=== PATIENT | male | born 1970 ===

== ENCOUNTER 2018-08-14 13:21 | Inpatient (IN) | payer MEDICAID, OTHER ==
--- NOTE | 2018-08-14 13:35 | C.PDOC ---
History Of Present Illness 48 year old male presents to the ER for an evaluation of left facial droop and recent falls. Patient reports he fell down at 1700 yesterday and since then he has had left sided facial droop and also fell one more time. He denies any pain , blurry vision, headache, head trauma, weakness or numbness in extremities. As per , patient has a lot of stress at work. PMD: Dr. Mjeia Time Seen by Provider: 08/14/18 13:31 Chief Complaint (Nursing): Weakness/Neurological Deficit History Per: Patient History/Exam Limitations: no limitations Onset/Duration Of Symptoms: Hrs Current Symptoms Are (Timing): Still Present Fall Associated With With Symptoms: Yes, No Injury As Result Of Fall Past Medical History Reviewed: Historical Data, Nursing Documentation, Vital Signs Vital Signs: Last Vital Signs Temp 97.9 F 08/18/18 08:29 Pulse 66 08/18/18 08:29 Resp 20 08/18/18 08:29 BP 120/80 08/18/18 08:29 Pulse Ox 99 08/18/18 08:29 - Medical History PMH: No Chronic Diseases Surgical History: No Surg Hx - [facility] Procedures CLOSURE SKIN & SUBCUTANEOUS NEC (04/30/15) Family History: States: Stroke (Father) - Social History Hx Tobacco Use: No Hx Alcohol Use: Yes Hx Substance Use: No - Immunization History Hx Tetanus Toxoid Vaccination: Yes Hx Influenza Vaccination: Yes Hx Pneumococcal Vaccination: No Review Of Systems Except As Marked, All Systems Reviewed And Found Negative. Eyes: Negative for: Vision Change Neurological: Negative for: Weakness, Numbness, Headache Physical Exam - Physical Exam Appears: Non-toxic, Other (Low acute distress ) Head: Other (Left facial droop that does not involve brow ) Eye(s): bilateral: PERRL, EOMI Nose: No Flaring Oral Mucosa: Moist Tongue: No Other (tongue deviation ) Lips: Normal Appearing Throat: No Erythema, No Exudate Neck: Normal ROM, Trachea Midline Lymphatic: No Adenopathy Chest: Symmetrical, No Tenderness Cardiovascular: Rhythm Regular, No Murmur Respiratory: Normal Breath Sounds, No Wheezing Gastrointestinal/Abdominal: Soft, No Tenderness Back: Normal Inspection, No Vertebral Tenderness Extremity: No Pedal Edema, No Deformity Neurological/Psych: Oriented x3, No Normal Speech (Slurred speech ), Normal Motor (strength 4/4 ), Other Other Neurological Findings: Facial Palsy, Forehead Sparing ED Course And Treatment - Laboratory Results Result Diagrams: 08/18/18 07:47 08/18/18 07:20 ECG: Interpreted By Me ECG Rhythm: Sinus Rhythm (normal qrs, normal st segments) O2 Sat by Pulse Oximetry: 98 (RA) Pulse Ox Interpretation: Normal - Other Rad CXR X-Ray: Viewed By Me, Read By Radiologist Interpretation: Accession No. : [id number]. Patient Name / ID : LAUREN CALDERÓN / [id number]. Exam Date : 08/14/2018 14:03:59 ( Approved ). Study Comment : Sex / Age : M / 48Y. Creator : Dionna Monahan MD. Dictator : Dionna Monahan MD. Mold Breaker : Manager Of Compliance : Dionna Monahan MD. Approver2 : Report Date : 08/14/2018 14:11:45. My Comment : . HISTORY: Code Stroke. COMPARISON: None available. TECHNIQUE: Chest, one view. FINDINGS: Examination limited by habitus. LUNGS: No focal consolidation. Probable 4 mm left mid lung zone calcified granuloma. Please note that chest x- ray has limited sensitivity for the detection of pulmonary masses. PLEURA: No significant pleural effusion identified. No definite pneumothorax . CARDIOVASCULAR: Heart size appears within normal limits. OSSEOUS STRUCTURES: Degenerative changes. VISUALIZED UPPER ABDOMEN: Unremarkable. OTHER FINDINGS : None. IMPRESSION: No focal consolidation, significant pleural effusion, or definite pneumothorax identified. - CT Scan/US CT Head Other Rad Studies (CT/US): Read By Radiologist, Radiology Report Reviewed CT/US Interpretation: Accession No. : [id number]. Patient Name / ID : LAUREN CALDERÓN / [id number]. Exam Date : 08/14/2018 13:42:58 ( Approved ). Study Comment : Sex / Age : M / 48Y. Creator : Nydia Winkler. Dictator : Loc Farfan MD. Mold Breaker : Manager Of Compliance : Loc Farfan MD. Approver2 : Report Date : 08/14/2018 13:47:50. My Comment : . Date of service: 08/14/2018. PROCEDURE: CT HEAD WITHOUT CONTRAST. HISTORY: Code Stroke. COMPARISON: None available. TECHNIQUE: Axial computed tomography images were obtained through the head/brain without intravenous contrast. Radiation dose: Total exam DLP = 1098 mGy-cm. This CT exam was performed using one or more of the following dose reduction techniques: Automated exposure control, adjustment of the mA and/or kV according to patient size, and/ or use of iterative reconstruction technique. FINDINGS: HEMORRHAGE: No intracranial hemorrhage. BRAIN: 3.5 x 3.2 cm vague hypodense region in the right frontal lobe involving the de [place] matter and white matter probably representing an evolving acute infarct of the right middle cerebral artery distribution. No atrophy or chronic microvascular ischemic changes. VENTRICLES : Unremarkable. No hydrocephalus. CALVARIUM: Unremarkable. PARANASAL SINUSES : Unremarkable as visualized. No significant inflammatory changes. MASTOID AIR CELLS: Unremarkable as visualized. No inflammatory changes. OTHER FINDINGS : None. IMPRESSION: 3.5 x 3.2 cm vague hypodense region in the right frontal lobe involving the [place] matter and white matter probably representing an evolving acute infarct of the right middle cerebral artery distribution. No acute hemorrhage. Recommend follow-up. CTA Neck Other Rad Studies (CT/US): Read By Radiologist, Radiology Report Reviewed CT/US Interpretation: Accession No. : [id number]. Patient Name / ID : LAUREN CALDERÓN / [id number]. Exam Date : 08/14/2018 13:46:27 ( Approved ). Study Comment : Sex / Age : M / 48Y. Creator : Nydia Winkler. Dictator : Radha Connors MD. Mold Breaker : Manager Of Compliance : Radha Connors MD. Approver2 : Report Date : 08/14/2018 13:51:49. My Comment : . PROCEDURE: CTA HEAD AND NECK WITH CONTRAST. HISTORY: code stroke. COMPARISON: None available. TECHNIQUE: Initial noncontrast head CT was performed. Subsequently , CT angiogram of the head and neck were performed after the intravenous administration of 80 mL of Omnipaque 350. Contiguous 1.5mm thick images were obtained in the axial plane of the neck. 2-D coronal and sagittal MPR images were obtained. Imaging postprocessing was performed with 3-D images also obtained. A delayed contrast head CT was also obtained. This CT exam was performed using one or more of the following dose reduction techniques: Automated exposure control, adjustment of the mA and/or kV according to patient size, and/or use of iterative reconstruction technique. Contrast dose: 100 mL Visipaque 320. Radiation dose: Total exam DLP = 671.05 mGy-cm. FINDINGS: HEAD: Right: The intracranial internal carotid artery, and anterior and middle cerebral arteries are widely patent. The right A1 segment is hypoplastic , an anatomic variant. Left: The intracranial internal carotid artery, and anterior and middle cerebral arteries are widely patent. Posterior circulation : The visualized intracranial vertebral arteries, basilar artery and posterior cerebral arteries are widely patent. There is origin of the right posterior cerebral artery, an anatomic variant. There is no endoluminal filling defect to suggest thrombus. There is no intracranial saccular aneurysm. There is no abnormal enhancement on the postcontrast CT. NECK: There is a two vessel aortic arch with common origin of the innominate and left common carotid artery is. There is no stenosis at the origins of the great vessels at the level of the aortic arch. Right Carotid: On the right, the common carotid , internal carotid and external carotid arteries are widely patent. There is an eccentric soft plaque in the proximal internal carotid artery. There is no hemodynamically significant stenosis in the internal carotid artery by NASCET criteria. Left Carotid: On the left, the common carotid, internal carotid and external carotid arteries are widely patent. There is no hemodynamically significant stenosis in the internal carotid artery by NASCET criteria. The vertebral arteries are widely patent. The right vertebral artery is hypoplastic , an anatomic variant. The visualized soft tissues of the neck are normal. The visualized brain and cervical spine are within normal limits. There is patchy ground-glass attenuation in the right posterior segment of the upper lobe. The visualized left lung is clear. IMPRESSION: 1. No evidence of endoluminal thrombus,occlusion or definite significant stenosis in the intracranial arteries. 2. No evidence of hemodynamically significant stenosis in the internal carotid arteries. 3. Patent bilateral vertebral arteries. Right vertebral artery is hypoplastic, an anatomic variant. 4. Patchy airspace disease in the posterior segment of the right upper lobe may represent nonspecific infection/inflammation. Critical Care Time - Critical Care Note Total Time (in mins): 30 Documented critical care: time excludes all time spent performing seperately billable procedures. NIHSS Stroke Scale 2 - Date/Time Evaluation Performed Date Performed: 08/14/18 When Was NIHSS Performed: Code Stroke - How Severe is the Stroke Level of Consciousness: 0=Alert LOC to Questions: 0=Both comments correct LOC to commands: 0=Obeys both correctly Best Gaze: 0=Normal Visual: 0=No visual loss Facial: 2=Partial (lower face paralysis) Motor Arm - Left: 0=No drift Motor Arm - Right: 0=No drift Motor Leg - Left: 0=No drift Motor Leg - Right: 0=No drift Limb Ataxia: 0=Absent Sensory: 0=Normal Best Language: 0=No aphasia Dysarthia: 1=Mild to moderate slurring Extinction & Inattention (Neglect): 0=Normal, no object Score: 3 Medical Decision Making Medical Decision Making: Impression: Left facial droop, Fall Differential but not limited to: CVA, Cerebellum mass, Stroke, Frederick's palsy 1350 Dr. Alvarez, Neurology, assessed patient for possible stroke. Dr. Alvarez agrees with plan of care. Patient is not a candidate for TPA due to timing of symptoms and severity. 1406 Dr. Alvarez suggests MRI scan. DW pt findings and plan of care. [address] Sevilla, Hospitalist. Patient will be admitted. Disposition Counseled Patient/Family Regarding: Studies Performed, Diagnosis - Disposition Disposition: HOME/ ROUTINE Disposition Time: 14:00 Condition: GUARDED - POA Present On Arrival: Falls Or Trauma - Clinical Impression Clinical Impression: CVA (cerebral vascular accident) - Scribe Statement The provider has reviewed the documentation as recorded by the Scribe Nava Geronimo All medical record entries made by the Scribe were at my direction and personally dictated by me. I have reviewed the chart and agree that the record accurately reflects my personal performance of the history, physical exam, medical decision making, and the department course for this patient. I have also personally directed, reviewed, and agree with the discharge instructions and disposition.
[2018-08-14] MEDS ORDERED: Iodixanol 320 MG/ML 100 ML BOTTLE IV ONE (13:41)
[2018-08-14 13:47] LABS: BASO # 0.1 K/uL (0.0-0.2); BASO % 1.3 % (0.0-2.0); EOS # 0.1 K/uL (0.0-0.7); EOS % 1.3 % (0.0-4.0); HEMOGLOBIN 14.2 g/dL (12.0-18.0); LYMPH # 1.9 K/uL (1.0-4.3); LYMPH % 32.3 % (20.0-40.0); MEAN CELL VOLUME 78.5 fL (80.0-94.0); MEAN CORPUSCULAR HEMOGLOBIN 26.2 pg (27.0-31.0); MEAN CORPUSCULAR HGB CONC 33.3 g/dL (33.0-37.0); MEAN PLATELET VOLUME 7.8 fL (7.2-11.7); MONO # 0.5 K/uL (0.0-0.8); NEUT # 3.4 K/uL (1.8-7.0); NEUT % 57.1 % (50.0-75.0); RBC 5.42 Mil/uL (4.40-5.90); RED CELL DISTRIBUTION WIDTH 16.2 % (11.5-14.5); WHITE BLOOD COUNT 5.9 K/uL (4.8-10.8)
[2018-08-14 13:54] LABS: INR 1.2; PROTHROMBIN TIME 12.8 SECONDS (9.7-12.2)
[2018-08-14 13:58] LABS: ALB/GLOB RATIO 1.2 (1.0-2.1); ALBUMIN 4.3 g/dL (3.5-5.0); ALT/SGPT 35 U/L (21-72); AST/SGOT 31 U/L (17-59); BLOOD UREA NITROGEN 10 mg/dL (9-20); GFR NON-AFRICAN AMERICAN > 60; HDL CHOLESTEROL 48 mg/dL (30-70)
--- NOTE | 2018-08-14 13:58 | CT ---
Date of service: 08/14/2018 PROCEDURE: CT HEAD WITHOUT CONTRAST. HISTORY: Code Stroke COMPARISON: None available. TECHNIQUE: Axial computed tomography images were obtained through the head/brain without intravenous contrast. Radiation dose: Total exam DLP = 1098 mGy-cm. This CT exam was performed using one or more of the following dose reduction techniques: Automated exposure control, adjustment of the mA and/or kV according to patient size, and/or use of iterative reconstruction technique. FINDINGS: HEMORRHAGE: No intracranial hemorrhage. BRAIN: 3.5 x 3.2 cm vague hypodense region in the right frontal lobe involving the [place] matter and white matter probably representing an evolving acute infarct of the right middle cerebral artery distribution. No atrophy or chronic microvascular ischemic changes. VENTRICLES: Unremarkable. No hydrocephalus. CALVARIUM: Unremarkable. PARANASAL SINUSES: Unremarkable as visualized. No significant inflammatory changes. MASTOID AIR CELLS: Unremarkable as visualized. No inflammatory changes. OTHER FINDINGS: None. IMPRESSION: 3.5 x 3.2 cm vague hypodense region in the right frontal lobe involving the de [place] matter and white matter probably representing an evolving acute infarct of the right middle cerebral artery distribution. No acute hemorrhage. Recommend follow-up.
[2018-08-14 14:03] VITALS: BMI 31.4
[2018-08-14 14:09] LABS: LDL CHOLESTEROL 103 mg/dL (0-129)
--- NOTE | 2018-08-14 14:13 | RAD ---
HISTORY: Code Stroke COMPARISON: None available. TECHNIQUE: Chest, one view. FINDINGS: Examination limited by habitus. LUNGS: No focal consolidation. Probable 4 mm left mid lung zone calcified granuloma. Please note that chest x-ray has limited sensitivity for the detection of pulmonary masses. PLEURA: No significant pleural effusion identified. No definite pneumothorax . CARDIOVASCULAR: Heart size appears within normal limits. OSSEOUS STRUCTURES: Degenerative changes. VISUALIZED UPPER ABDOMEN: Unremarkable. OTHER FINDINGS: None. IMPRESSION: No focal consolidation, significant pleural effusion, or definite pneumothorax identified.
[2018-08-14] MEDS ORDERED: Aspirin 325 mg EC Tablets PO STA (14:18)
[2018-08-14] MEDS ORDERED: Aspirin 325 mg EC Tablets PO ONE (14:29)
--- NOTE | 2018-08-14 14:39 | CT ---
PROCEDURE: CTA HEAD AND NECK WITH CONTRAST HISTORY: code stroke COMPARISON: None available. TECHNIQUE: Initial noncontrast head CT was performed. Subsequently, CT angiogram of the head and neck were performed after the intravenous administration of 80 mL of Omnipaque 350. Contiguous 1.5mm thick images were obtained in the axial plane of the neck. 2-D coronal and sagittal MPR images were obtained. Imaging postprocessing was performed with 3-D images also obtained. A delayed contrast head CT was also obtained. This CT exam was performed using one or more of the following dose reduction techniques: Automated exposure control, adjustment of the mA and/or kV according to patient size, and/or use of iterative reconstruction technique. Contrast dose: 100 mL Visipaque 320 Radiation dose: Total exam DLP = 671.05 mGy-cm. FINDINGS: HEAD: Right: The intracranial internal carotid artery, and anterior and middle cerebral arteries are widely patent. The right A1 segment is hypoplastic, an anatomic variant. Left: The intracranial internal carotid artery, and anterior and middle cerebral arteries are widely patent. Posterior circulation: The visualized intracranial vertebral arteries, basilar artery and posterior cerebral arteries are widely patent. There is origin of the right posterior cerebral artery, an anatomic variant. There is no endoluminal filling defect to suggest thrombus. There is no intracranial saccular aneurysm. There is no abnormal enhancement on the postcontrast CT. NECK: There is a two vessel aortic arch with common origin of the innominate and left common carotid artery is. There is no stenosis at the origins of the great vessels at the level of the aortic arch. Right Carotid: On the right, the common carotid, internal carotid and external carotid arteries are widely patent. There is an eccentric soft plaque in the proximal internal carotid artery. There is no hemodynamically significant stenosis in the internal carotid artery by NASCET criteria. Left Carotid: On the left, the common carotid, internal carotid and external carotid arteries are widely patent. There is no hemodynamically significant stenosis in the internal carotid artery by NASCET criteria. The vertebral arteries are widely patent. The right vertebral artery is hypoplastic, an anatomic variant. The visualized soft tissues of the neck are normal. The visualized brain and cervical spine are within normal limits. There is patchy ground-glass attenuation in the right posterior segment of the upper lobe. The visualized left lung is clear. IMPRESSION: 1. No evidence of endoluminal thrombus,occlusion or definite significant stenosis in the intracranial arteries. 2. No evidence of hemodynamically significant stenosis in the internal carotid arteries. 3. Patent bilateral vertebral arteries. Right vertebral artery is hypoplastic, an anatomic variant. 4. Patchy airspace disease in the posterior segment of the right upper lobe may represent nonspecific infection/inflammation.
--- NOTE | 2018-08-14 16:22 | CP.PCM.HP ---
<Ana PaulajuliannejaydenKaylaashleigh - Last Filed: 08/14/18 18:49> History of Present Illness - History of Present Illness History of Present Illness: History and Physical Exam Medicine Note for Dr. Sevilla Patient is a 48 year old [place]ian male with no past medical history. Patient's (Myrna) and daughter are at bedside with consent of patient to help with translation and with patient history. Patient comes to ED with a complaint of left-sided facial droop. Patient states this started yesterday at about 5: 30PM while at home. Patient states he was walking into the kitchen when he suddenly felt his left leg starting to "wabble," subsequently to which he fell onto his left side. This fall was not witnessed, and patient proceeded to sit on the couch. Patient's came into the house and noticed the patient's face was "lop-sided" and she stated the patient had slurred speech. Patient's told the patient that he needs to go to the ED, but patient refused. Patient was eating dinner and was unable to keep liquid from spilling from the left side of mouth. Patient took 81mg Aspirin and went to bed. Patient woke up following morning with continued left-sided facial droop, which prompted him to come to ED. Patient admits to headache throbbing in quality and localizes to the front of his head after the fall, but denies any bruising and/or cuts. Patient also denies headache currently. Patient also denies chest pain, dizziness, palpitations, shortness of breath, numbness and/or tingling, weakness , blurry vision, tinnitus, ear pain, and/or discharge from ears. PMH: Patient denies PSH: Patient denies Medications: Patient denies Allergies: Patient denies FHx: Father: stroke at age 68, alive. 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 Mejia Pharmacy: (no medications, but chooses: [facility] in [place]) Present on Admission - Present on Admission Any Indicators Present on Admission: No History of DVT/PE: No History of Uncontrolled Diabetes: No Urinary Catheter: No Decubitus Ulcer Present: No History Surgical Site Infection Following: None Review of Systems - Review of Systems All systems: reviewed and no additional remarkable complaints except - Constitutional Constitutional: As Per HPI - EENT Eyes: As Per HPI Ears: As Per HPI Nose/Mouth/Throat: As Per HPI - Cardiovascular Cardiovascular: As Per HPI - Respiratory Respiratory: As Per HPI - Gastrointestinal Gastrointestinal: As Per HPI - Genitourinary Genitourinary: As Per HPI - Reproductive: Male Reproductive:Male: As Per HPI - Musculoskeletal Musculoskeletal: As Per HPI - Integumentary Integumentary: As Per HPI - Neurological Neurological: As Per HPI - Psychiatric Psychiatric: As Per HPI - Endocrine Endocrine: As Per HPI - Hematologic/Lymphatic Hematologic: As Per HPI Past Patient History - Infectious Disease Hx of Infectious Diseases: None - Past Social History Smoking Status: Light Smoker < 10 Cigarettes Daily (for 1 year, stopped 3 years ago) Drugs: Denies Home Situation {Lives}: With Family - PSYCHIATRIC Hx Substance Use: No - ANESTHESIA Hx Anesthesia: No Meds Allergies/Adverse Reactions: Allergies Allergy/AdvReac Type Severity Reaction Status Date / Time No Known Allergies Allergy Verified 04/30/15 12:26 Physical Exam - Constitutional Appears: Non-toxic, No Acute Distress - Head Exam Head Exam: ATRAUMATIC, NORMAL INSPECTION, NORMOCEPHALIC - Eye Exam Eye Exam: PERRL. absent: Conjunctival injection Pupil Exam: NORMAL ACCOMODATION, PERRL Additional comments: Deficit with abduction of left eye - ENT Exam ENT Exam: Mucous Membranes Moist, Normal Exam - Neck Exam Neck exam: Positive for: Full Rom, Normal Inspection - Respiratory Exam Respiratory Exam: Clear to Auscultation Bilateral, NORMAL BREATHING PATTERN. absent: Wheezes, Respiratory Distress - Cardiovascular Exam Cardiovascular Exam: +S1, +S2. absent: Diastolic murmur, Gallop, Rubs - GI/Abdominal Exam GI & Abdominal Exam: Normal Bowel Sounds, Soft. absent: Distended, Firm, Guarding - Extremities Exam Extremities exam: Positive for: full ROM, normal capillary refill, normal inspection, pedal pulses present. Negative for: calf tenderness, joint swelling , pedal edema, tenderness - Back Exam Back exam: absent: CVA tenderness (L) Additional comments: skin on upper thoracic area appears garner compared to rest of unexposed skin areas. - Neurological Exam Neurological exam: Alert, Oriented x3, Reflexes Normal Additional comments: Facial droop appreciated on left - forehead spared. - Expanded Neurological Exam Expanded Patient oriented to: person, place, time Cranial nerves: EOM's Intact: Abnormal Left (abduction of left eye ), Facial Sensation: Normal, Tongue Deviation: Abnormal Left (deviatd to left side ) Ataxia: No Cerebellar Function: Finger to Nose: Normal, Heel to Florentino: Normal Upper motor neuron: Babinski Sign: Normal, Pronator Drift: Abnormal Left Sensory exam: Lower Extremity 2 Point Discrimination: Normal, Lower Extremity Light Touch: Normal, Lower Extremity Pin Prick: Normal, Lower Extremity Temperature: Normal, Upper Extremity 2 Point Discrimination: Normal, Upper Extremity Light Touch: Normal, Upper Extremity Pin Prick: Normal, Upper Extremity Temperature: Normal Neuro motor strength exam: Left Upper Extremity: 4, Right Upper Extremity: 5, Left Lower Extremity: 4, Right Lower Extremity: 5 DTR: Bicep Left: 2+, Bicep Right: 2+, Patellar Left: 2+, Patellar Right: 2+ - Psychiatric Exam Psychiatric exam: Normal Affect - Skin Skin Exam: Dry, Intact, Normal Color, Warm Results - Vital Signs Recent Vital Signs: Last Vital Signs Temp 98.6 F 08/14/18 14:04 Pulse 69 08/14/18 14:04 Resp 18 08/14/18 14:04 BP 111/75 08/14/18 14:04 Pulse Ox 98 08/14/18 15:18 - Labs Result Diagrams: 08/14/18 13:39 08/14/18 13:39 Labs: Laboratory Results - last 24 hr 08/14/18 08/14/18 08/14/18 13:32 13:39 13:39 WBC 5.9 RBC 5.42 Hgb 14.2 Hct 42.6 MCV 78.5 L MCH 26.2 L MCHC 33.3 RDW 16.2 H Plt Count 292 MPV 7.8 Neut % (Auto) 57.1 Lymph % (Auto) 32.3 [place] % (Auto) 8.0 Eos % (Auto) 1.3 Baso % (Auto) 1.3 Neut # (Auto) 3.4 Lymph # (Auto) 1.9 [place] # (Auto) 0.5 Eos # (Auto) 0.1 Baso # (Auto) 0.1 PT 12.8 H INR 1.2 APTT 37 H Sodium Potassium Chloride Carbon Dioxide Anion Gap BUN Creatinine Est GFR ( Amer) Est GFR (Non-Af Amer) POC Glucose (mg/dL) 95 Random Glucose Hemoglobin A1c Calcium Total Bilirubin AST ALT Alkaline Phosphatase Troponin I Total Protein Albumin Globulin Albumin/Globulin Ratio Triglycerides Cholesterol LDL Cholesterol Direct HDL Cholesterol Blood Type Antibody Screen 08/14/18 08/14/18 08/14/18 13:39 13:39 13:41 WBC RBC Hgb Hct MCV MCH MCHC RDW Plt Count MPV Neut % (Auto) Lymph % (Auto) [place] % (Auto) Eos % (Auto) Baso % (Auto) Neut # (Auto) Lymph # (Auto) [place] # (Auto) Eos # (Auto) Baso # (Auto) PT INR APTT Sodium 139 Potassium 4.1 Chloride 102 Carbon Dioxide 28 Anion Gap 13 BUN 10 Creatinine 0.7 L Est GFR ( Amer) > 60 Est GFR (Non-Af Amer) > 60 POC Glucose (mg/dL) Random Glucose 108 Hemoglobin A1c 5.8 Calcium 9.0 Total Bilirubin 0.7 AST 31 ALT 35 Alkaline Phosphatase 72 Troponin I < 0.0120 Total Protein 7.9 Albumin 4.3 Globulin 3.6 Albumin/Globulin Ratio 1.2 Triglycerides 61 Cholesterol 165 LDL Cholesterol Direct 103 HDL Cholesterol 48 Blood Type O POSITIVE Antibody Screen Negative - EKG Data EKG Interpreted by: Myself EKG shows normal: Sinus rhythm Rate: Normal Assessment & Plan - Assessment and Plan (Free Text) Assessment: 1. Acute Right Frontal Lobe Infarct - + Left-sided facial droop - + Left upper extremity weakness - + Left lower extremity weakness - Not a candidate for TPA, as symptoms started yesterday - CT head (08/14/18): Acute infarct of right middle cerebral artery (per official report) - CT head / neck (08/14/18): No evidence of thrombus, occlusion, stenosis etc ( see complete report) - MRI of brain without contrast: Pending report - ECHO cardiogram with bubble study: Ordered - Lipid panel: HLK=232, HDL=48 - Medications to be taken for 21 days * ASA 81mg PO daily * Plavix 75mg PO daily - Crestor 5mg PO QHS - Neuro checks Q4 - KOFI 1: EKG: NSR at 63bpm Trop: negative - KOFI 2: pending 19:40 - KOFI 3: pending 01:40 (08/15) - Pending swallow eval - PT/OT evaluation - Activity: Bedrest, Fall precautions - Repeat CBC, CMP in AM: pending - Monitor Impaired glucose tolerate - [id number]=3.8 - [employer] referral Obese - genetics physician referral Prophylactic Measures - Lovenox 40mg SubQ daily Former smoker - Nicoderm 1 patch 14mg Q24H NIH Stroke Scale: 3 - Evaluated patient > 20 hours post signs and symptoms - Patient is outside Stroke tPA Treatment Window Code Decision To Admit - . Bed Request Type: Telemetry NIHSS Stroke Scale - Date/Time Evaluation Performed Date Performed: 08/14/18 Time Performed: 14:55 When Was NIHSS Performed: Code Stroke Re-evaluation (evaluation occured >20 hours post onset S/S) - How Severe is the Stroke Level of Consciousness: 0=Alert LOC to Questions: 0=Both comments correct LOC to commands: 0=Obeys both correctly Best Gaze: 0=Normal Visual: 0=No visual loss Facial: 2=Partial (lower face paralysis) Motor Arm - Left: 1=Drift noted before 10 sec Motor Arm - Right: 0=No drift Motor Leg - Left: 0=No drift Motor Leg - Right: 0=No drift Limb Ataxia: 0=Absent Sensory: 0=Normal Best Language: 0=No aphasia Dysarthia: 0=Normal articulation Extinction & Inattention (Neglect): 0=Normal, no object Score: 3 <Carol Sevilla V - Last Filed: 08/16/18 09:23> Results - Vital Signs Recent Vital Signs: Last Vital Signs Temp 98.6 F 08/16/18 07:00 Pulse 66 08/16/18 07:00 Resp 20 08/16/18 07:00 BP 125/84 08/16/18 07:00 Pulse Ox 98 08/16/18 07:00 - Labs Result Diagrams: 08/16/18 08:11 08/16/18 08:11 Labs: Laboratory Results - last 24 hr 08/15/18 08/15/18 08/15/18 07:40 16:45 21:09 WBC RBC Hgb Hct MCV MCH MCHC RDW Plt Count MPV Neut % (Auto) Lymph % (Auto) [place] % (Auto) Eos % (Auto) Baso % (Auto) Neut # (Auto) Lymph # (Auto) [place] # (Auto) Eos # (Auto) Baso # (Auto) Sodium 139 Potassium 4.1 Chloride 101 Carbon Dioxide 28 Anion Gap 14 BUN 11 Creatinine 0.7 L Est GFR ( Amer) > 60 Est GFR (Non-Af Amer) > 60 POC Glucose (mg/dL) 80 95 Random Glucose 88 Calcium 8.9 Total Bilirubin 0.8 AST 42 ALT 38 Alkaline Phosphatase 71 Total Protein 7.1 Albumin 4.1 Globulin 3.1 Albumin/Globulin Ratio 1.3 Homocysteine 7.7 08/16/18 08/16/18 08/16/18 06:47 08:11 08:11 WBC 5.8 RBC 5.25 Hgb 13.8 Hct 40.7 MCV 77.6 L MCH 26.3 L MCHC 34.0 RDW 15.8 H Plt Count 253 MPV 8.1 Neut % (Auto) 63.3 Lymph % (Auto) 24.6 [place] % (Auto) 9.0 Eos % (Auto) 2.6 Baso % (Auto) 0.5 Neut # (Auto) 3.7 Lymph # (Auto) 1.4 [place] # (Auto) 0.5 Eos # (Auto) 0.2 Baso # (Auto) 0.0 Sodium 140 Potassium 4.0 Chloride 105 Carbon Dioxide 25 Anion Gap 15 BUN 7 L Creatinine 0.6 L Est GFR ( Amer) > 60 Est GFR (Non-Af Amer) > 60 POC Glucose (mg/dL) 81 Random Glucose 90 Calcium 8.5 L Total Bilirubin 0.6 AST 31 ALT 30 Alkaline Phosphatase 74 Total Protein 7.2 Albumin 4.1 Globulin 3.1 Albumin/Globulin Ratio 1.3 Homocysteine Attending/Attestation - Attestation I have personally seen and examined this patient.: Yes I have fully participated in the care of the patient.: Yes I have reviewed all pertinent clinical information: Yes Notes (Text): 48 year old Male PMHx overweight, former smokes comes in per request of his , One day after he has sustained left lower extremity weakness, and left facial droop and change in speech. He had taken Aspirin on his own but unable to tolerate liquids. Patient came in to the Emergency Room the day after his symptoms present. Patient is not a candidate for TPA. Patient is CT head noted for acute infarct of right middle cerebral artery, CT head/neck no evidence of thrombus/occlusion/stenosis. MRI Brain, I spoke with [facility] radiologist noting for acute infarct of the right MCA territory; I have indicated to radiologist patient is not candidate for TPA. Discussed admitting orders with resident and discussed case with neurologist. 1. Acute Right Frontal Lobe Infarct * Admit to telemetry * Risk factor: obesity; family hx of stroke (father), former smoker * Physical exam findings: + Left-sided facial droop, + Left upper extremity weakness, + Left lower extremity weakness * Not a candidate for TPA, as symptoms started yesterday * CT head (08/14/18): Acute infarct of right middle cerebral artery (per official report) * CT head / neck (08/14/18): No evidence of thrombus, occlusion, stenosis etc ( see complete report) * MRI of brain without contrast: Pending report * ECHO cardiogram with bubble study: Ordered * Lipid panel: HWO=142, HDL=48 * In the ED, patient started Aspirin 325 mg PO X1, per MACY trial, ASA 81mg PO daily and Plavix 75mg PO daily for 21 days * Crestor 5mg PO QHS * Neuro checks Q4 * KOFI 1: EKG: NSR at 63bpm Trop: negative * KOFI 2: pending 19:40 * KOFI 3: pending 01:40 (08/15) * Pending swallow eval * PT/OT evaluation * Activity: Bedrest, Fall precautions * Repeat CBC, CMP in AM: pending 2. Impaired glucose tolerance * [id number]=7.8 * [employer] referral 3. Obesity * genetics physician referral 4. Former smoker * Nicoderm 1 patch 14mg Q24H 5. Prophylactic Measures * Lovenox 40mg SubQ daily * Swallow eval and treat * Neurochecks Q4H * PT/OT eval
[2018-08-14] MEDS: Sodium Chloride 0.9% 1,000 ML IV SCH (18:30)
[2018-08-14 20:30] LABS: CK-MB < 0.22 ng/mL (0.0-3.38)
--- NOTE | 2018-08-15 01:53 | CP.PCM.CON ---
History of Present Illness - History of Present Illness History of Present Illness: Please note that this history is obtained from the chart and residents note that was formulated with my supervision; 48 year old Irish male with no past medical history. Patient's ( Myrna) and daughter are at bedside with consent of patient to help with translation and with patient history. Patient comes to ED with a complaint of left-sided facial droop. Patient states this started yesterday at about 5:30PM while at home. Patient states he was walking into the kitchen when he suddenly felt his left leg starting to "wabble," subsequently to which he fell onto his left side. This fall was not witnessed, and patient proceeded to sit on the couch. Patient's came into the house and noticed the patient's face was "lop-sided" and she stated the patient had slurred speech. Patient's told the patient that he needs to go to the ED, but patient refused. Patient was eating dinner and was unable to keep liquid from spilling from the left side of mouth. Patient took 81mg Aspirin and went to bed. Patient woke up following morning with continued left-sided facial droop, which prompted him to come to ED. Patient admits to headache throbbing in quality and localizes to the front of his head after the fall, but denies any bruising and/or cuts. Patient also denies headache currently. Patient also denies chest pain, dizziness, palpitations, shortness of breath, numbness and/or tingling, weakness, blurry vision, tinnitus, ear pain, and/or discharge from ears. Patient is not a TPA candidate due to more than 6 hours since symptoms began. NIHSS 4 PMH: Patient denies PSH: Patient denies Medications: Patient denies Allergies: Patient denies FHx: Father: stroke at age 68, alive. 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 PERRL. +left sided facial droop. Speech was dysarthric. Tongue deviated to right. Motor: left arm shows slight drift. left leg normal. right upper and lower limb 5/5 Sensory: no deficits. Gait: has trouble walking tandem. +2 dtr ul andll bl. Toes downgoing. no clonus, Past Patient History - Infectious Disease Hx of Infectious Diseases: None - Past Medical History & Family History Past Medical History?: No - Past Social History Smoking Status: Light Smoker < 10 Cigarettes Daily (for 1 year, stopped 3 years ago) Drugs: Denies Home Situation {Lives}: With Family - MUSCULOSKELETAL/RHEUMATOLOGICAL Hx Falls: No - PSYCHIATRIC Hx Substance Use: No - SURGICAL HISTORY Hx Surgeries: No - ANESTHESIA Hx Anesthesia: No Meds Allergies/Adverse Reactions: Allergies Allergy/AdvReac Type Severity Reaction Status Date / Time No Known Allergies Allergy Verified 04/30/15 12:26 - Medications Medications: Current Medications Aspirin (Aspirin Chewable) 81 mg PO DAILY [facility] Clopidogrel Bisulfate (Plavix) 75 mg PO DAILY [facility] Enoxaparin Sodium (Lovenox) 40 mg SC DAILY [facility] Sodium Chloride (Sodium Chloride 0.9%) 1,000 mls @ 100 mls/hr IV .Q10H [facility] Last Admin: 08/14/18 18:30 Dose: 100 mls/hr Nicotine (Nicoderm Cq) 1 patch TD DAILY [facility] Pneumococcal Polyvalent Vaccine (Pneumovax 23 Vaccine) 0.5 ml IM .ONCE ONE Stop: 08/16/18 10:01 Rosuvastatin Calcium (Crestor) 5 mg PO HS [facility] Results - Vital Signs Recent Vital Signs: Last Vital Signs Temp 98.4 F 08/14/18 22:00 Pulse 58 L 08/14/18 23:30 Resp 20 08/14/18 22:00 BP 120/78 08/14/18 22:00 Pulse Ox 98 08/14/18 22:00 - Labs Result Diagrams: 08/14/18 13:39 08/14/18 13:39 Labs: Laboratory Results - last 24 hr 08/14/18 08/14/18 08/14/18 13:32 13:39 13:39 WBC 5.9 RBC 5.42 Hgb 14.2 Hct 42.6 MCV 78.5 L MCH 26.2 L MCHC 33.3 RDW 16.2 H Plt Count 292 MPV 7.8 Neut % (Auto) 57.1 Lymph % (Auto) 32.3 [place] % (Auto) 8.0 Eos % (Auto) 1.3 Baso % (Auto) 1.3 Neut # (Auto) 3.4 Lymph # (Auto) 1.9 [place] # (Auto) 0.5 Eos # (Auto) 0.1 Baso # (Auto) 0.1 PT 12.8 H INR 1.2 APTT 37 H Sodium Potassium Chloride Carbon Dioxide Anion Gap BUN Creatinine Est GFR ( Amer) Est GFR (Non-Af Amer) POC Glucose (mg/dL) 95 Random Glucose Hemoglobin A1c Calcium Total Bilirubin AST ALT Alkaline Phosphatase Total Creatine Kinase CK-MB (Mass) Troponin I Total Protein Albumin Globulin Albumin/Globulin Ratio Triglycerides Cholesterol LDL Cholesterol Direct HDL Cholesterol Blood Type Antibody Screen 08/14/18 08/14/18 08/14/18 13:39 13:39 13:41 WBC RBC Hgb Hct MCV MCH MCHC RDW Plt Count MPV Neut % (Auto) Lymph % (Auto) [place] % (Auto) Eos % (Auto) Baso % (Auto) Neut # (Auto) Lymph # (Auto) [place] # (Auto) Eos # (Auto) Baso # (Auto) PT INR APTT Sodium 139 Potassium 4.1 Chloride 102 Carbon Dioxide 28 Anion Gap 13 BUN 10 Creatinine 0.7 L Est GFR ( Amer) > 60 Est GFR (Non-Af Amer) > 60 POC Glucose (mg/dL) Random Glucose 108 Hemoglobin A1c 5.8 Calcium 9.0 Total Bilirubin 0.7 AST 31 ALT 35 Alkaline Phosphatase 72 Total Creatine Kinase CK-MB (Mass) Troponin I < 0.0120 Total Protein 7.9 Albumin 4.3 Globulin 3.6 Albumin/Globulin Ratio 1.2 Triglycerides 61 Cholesterol 165 LDL Cholesterol Direct 103 HDL Cholesterol 48 Blood Type O POSITIVE Antibody Screen Negative 08/14/18 20:00 WBC RBC Hgb Hct MCV MCH MCHC RDW Plt Count MPV Neut % (Auto) Lymph % (Auto) [place] % (Auto) Eos % (Auto) Baso % (Auto) Neut # (Auto) Lymph # (Auto) [place] # (Auto) Eos # (Auto) Baso # (Auto) PT INR APTT Sodium Potassium Chloride Carbon Dioxide Anion Gap BUN Creatinine Est GFR ( Amer) Est GFR (Non-Af Amer) POC Glucose (mg/dL) Random Glucose Hemoglobin A1c Calcium Total Bilirubin AST ALT Alkaline Phosphatase Total Creatine Kinase 71 CK-MB (Mass) < 0.22 Troponin I < 0.0120 Total Protein Albumin Globulin Albumin/Globulin Ratio Triglycerides Cholesterol LDL Cholesterol Direct HDL Cholesterol Blood Type Antibody Screen Assessment & Plan - Assessment and Plan (Free Text) Assessment: Ct head: shows subacute stroke in the right M1 region. MRI Brain: shows stroke in the same region. A/P: 48 yr old male with new ischemic right m1 stroke, who is not a tpa candidate. plan; 1. Echo 2. Lipid profile. 3. PT/St/OT 4. protein c, protein s, factor 5 leiden, prothrombin gene mutation, homocystein , lupus anticoagulant, 5. dvt prophylaxix. 6 Keep bp elevated at around 180/90 [facility] for consulting neurology Joyce Herr
[2018-08-15 02:21] LABS: BARBITURATES, UR NEGATIVE (NEGATIVE); BENZODIAZEPINES, UR NEGATIVE (NEGATIVE); OPIATES, UR NEGATIVE (NEGATIVE); PHENCYCLIDINE, UR NEGATIVE (NEGATIVE)
[2018-08-15 03:04] LABS: CK-MB < 0.44 ng/mL (0.0-3.38)
[2018-08-15] MEDS: Sodium Chloride 0.9% 1,000 ML IV SCH ×4 (04:10→19:54)
--- NOTE | 2018-08-15 07:22 | CP.PCM.PN ---
<Aliza Ibrhaim - Last Filed: 08/15/18 16:53> Subjective - Date & Time of Evaluation Date of Evaluation: 08/15/18 Time of Evaluation: 08:10 - Subjective Subjective: PGY1 Medicine Progress Note for Dr. Sevilla Patient seen and evaluated at bedside. Patient is requesting to eat, and states he is very hungry. Patient currently receiving fluids, as he is NPO until speech therapy evaluates for swallow evaluation. Admits to bowel movement. No complaints overnight. No other current complaints. Patient denies chest pain, shortness of breath, palpitations, headache, dizziness, fever, chills, nausea, vomiting, diarrhea, numbness and/or tingling in extremities. Objective - Vital Signs/Intake and Output Vital Signs (last 24 hours): Temp Pulse Resp BP Pulse Ox 97.6 F 70 20 113/75 97 08/15/18 04:00 08/15/18 04:00 08/15/18 04:00 08/15/18 04:00 08/15/18 04:00 Intake and Output: 08/15/18 08/15/18 06:59 18:59 Intake Total 450 Balance 450 - Medications Medications: Current Medications Aspirin (Aspirin Chewable) 81 mg PO DAILY [facility] Clopidogrel Bisulfate (Plavix) 75 mg PO DAILY [facility] Enoxaparin Sodium (Lovenox) 40 mg SC DAILY [facility] Sodium Chloride (Sodium Chloride 0.9%) 1,000 mls @ 100 mls/hr IV .Q10H [facility] Last Admin: 08/15/18 04:10 Dose: 100 mls/hr Nicotine (Nicoderm Cq) 1 patch TD DAILY [facility] Pneumococcal Polyvalent Vaccine (Pneumovax 23 Vaccine) 0.5 ml IM .ONCE ONE Stop: 08/16/18 10:01 Rosuvastatin Calcium (Crestor) 5 mg PO HS [facility] - Labs Labs: 08/14/18 13:39 08/14/18 13:39 PT 12.8 SECONDS (9.7-12.2) H 08/14/18 13:39 INR 1.2 08/14/18 13:39 APTT 37 SECONDS (21-34) H 08/14/18 13:39 - Additional Findings Additional findings: - Constitutional Appears: Non-toxic, No Acute Distress - Head Exam Head Exam: ATRAUMATIC, NORMAL INSPECTION, NORMOCEPHALIC - Eye Exam Eye Exam: PERRL. absent: Conjunctival injection Pupil Exam: NORMAL ACCOMODATION, PERRL Additional comments: Deficit with abduction of left eye - ENT Exam ENT Exam: Mucous Membranes Moist, Normal Exam - Neck Exam Neck exam: Positive for: Full Rom, Normal Inspection - Respiratory Exam Respiratory Exam: Clear to Auscultation Bilateral, NORMAL BREATHING PATTERN. absent: Wheezes, Respiratory Distress - Cardiovascular Exam Cardiovascular Exam: +S1, +S2. absent: Diastolic murmur, Gallop, Rubs - GI/Abdominal Exam GI & Abdominal Exam: Normal Bowel Sounds, Soft. absent: Distended, Firm, Guarding - Extremities Exam Extremities exam: Positive for: full ROM, normal capillary refill, normal inspection, pedal pulses present. Negative for: calf tenderness, joint swelling , pedal edema, tenderness - Back Exam Back exam: absent: CVA tenderness (L) Additional comments: skin on upper thoracic area appears garner compared to rest of unexposed skin areas. - Neurological Exam Neurological exam: Alert, Oriented x3, Reflexes Normal Additional comments: Facial droop appreciated on left - forehead spared. - Expanded Neurological Exam Expanded Patient oriented to: person, place, time Cranial nerves: EOM's Intact: Abnormal Left (abduction of left eye ), Facial Sensation: Normal, Tongue Deviation: Abnormal Left (deviatd to left side ) Ataxia: No Cerebellar Function: Finger to Nose: Normal, Heel to Florentino: Normal Upper motor neuron: Babinski Sign: Normal, Pronator Drift: Abnormal Left Sensory exam: Lower Extremity 2 Point Discrimination: Normal, Lower Extremity Light Touch: Normal, Lower Extremity Pin Prick: Normal, Lower Extremity Temperature: Normal, Upper Extremity 2 Point Discrimination: Normal, Upper Extremity Light Touch: Normal, Upper Extremity Pin Prick: Normal, Upper Extremity Temperature: Normal Neuro motor strength exam: Left Upper Extremity: 4, Right Upper Extremity: 5, Left Lower Extremity: 4, Right Lower Extremity: 5 DTR: Bicep Left: 2+, Bicep Right: 2+, Patellar Left: 2+, Patellar Right: 2+ Babinsky's negative bilaterally. - Psychiatric Exam Psychiatric exam: Normal Affect - Skin Skin Exam: Dry, Intact, Normal Color, Warm Assessment and Plan - Assessment and Plan (Free Text) Assessment: 1. Acute Right Frontal Lobe Infarct - + Left-sided facial droop - + Left upper extremity weakness - + Left lower extremity weakness - Not a candidate for TPA, as symptoms started > 20 hours since code stroke called - Per Neurology (Dr. Harley) Maintain blood pressure at LEAST above 150 systolic. * GF=408/76 in afternoon BP 1L bolus x1 given, Communicated with nurse to recheck BP after completed. * Increased NS to 200cc/hr * Monitor BP * Allow for permissive hypertension >180/90 - CT head (08/14/18): Acute infarct of right middle cerebral artery (per official report) - CT head / neck (08/14/18): No evidence of thrombus, occlusion, stenosis etc ( see complete report) - MRI of brain without contrast: large acute right MCA territory infarction involving the posterior frontal and anterior parietal lobes. Mild global parenchymal volume loss, slightly advanced for the patient's age. - ECHO cardiogram with bubble study completed: pending report - Lipid panel: OGI=796, HDL=48 - Medications to be taken for 21 days * ASA 81mg PO daily * Plavix 75mg PO daily - Given once today: ASA 300mg RS - Patient meets criteria for high intensity statin therapy: Thus, Increased Crestor 5mg PO QHS --> Crestor 20mg PO HS - Neuro checks Q4 - KOFI series: negative x3 - Pending swallow eval * Called speech therapy this morning. Will come evaluate the patient. Per nurse , the therapist came while patient was in study and could not complete it today. Will follow up. - PT/OT evaluation pending - Activity: Bedrest, Fall precautions - CBC within normal limits - CMP within normal limits - Monitor on telemetry Impaired glucose tolerate - GqzK5p=5.8 - Maintenance Of Way Superintendent referral Obese - thermostat machine tender referral Prophylactic Measures - Lovenox 40mg SubQ daily Former smoker - Nicoderm 1 patch 14mg Q24H NIH Stroke Scale: 3 - Evaluated patient > 20 hours post signs and symptoms See History and Physical Note for NIHSS from 08/14/18. Patient seen and case discussed in detail with Dr. Roel Ibrahim PGY1 <Carol Sevilla V - Last Filed: 08/16/18 09:28> Objective - Vital Signs/Intake and Output Vital Signs (last 24 hours): Temp Pulse Resp BP Pulse Ox 98.6 F 66 20 125/84 98 08/16/18 07:00 08/16/18 07:00 08/16/18 07:00 08/16/18 07:00 08/16/18 07:00 Intake and Output: 08/16/18 08/16/18 06:59 18:59 Intake Total 2800 Output Total 2500 Balance 300 - Medications Medications: Current Medications Aspirin (Aspirin Chewable) 81 mg PO DAILY [facility] Last Admin: 08/15/18 10:00 Dose: Not Given Clopidogrel Bisulfate (Plavix) 75 mg PO DAILY [facility] Last Admin: 08/15/18 10:00 Dose: Not Given Enoxaparin Sodium (Lovenox) 40 mg SC DAILY [facility] Last Admin: 08/15/18 10:30 Dose: 40 mg Sodium Chloride (Sodium Chloride 0.9%) 1,000 mls @ 200 mls/hr IV .Q5H [facility] Last Admin: 08/16/18 06:12 Dose: Not Given Sodium Chloride (Sodium Chloride 0.9%) 1,000 mls @ 1,000 mls/hr IV .Q1H ONE Stop: 08/16/18 10:13 Nicotine (Nicoderm Cq) 1 patch TD DAILY [facility] Last Admin: 08/15/18 11:00 Dose: Not Given Pneumococcal Polyvalent Vaccine (Pneumovax 23 Vaccine) 0.5 ml IM .ONCE ONE Stop: 08/16/18 10:01 Rosuvastatin Calcium (Crestor) 20 mg PO HS [facility] Last Admin: 08/15/18 21:29 Dose: 20 mg - Labs Labs: 08/16/18 08:11 08/16/18 08:11 PT 12.8 SECONDS (9.7-12.2) H 08/14/18 13:39 INR 1.2 08/14/18 13:39 APTT 37 SECONDS (21-34) H 08/14/18 13:39 Attending/Attestation - Attestation I have personally seen and examined this patient.: Yes I have fully participated in the care of the patient.: Yes I have reviewed all pertinent clinical information, including history, physical exam and plan: Yes Notes (Text): This is late computer entry for 08/15/18. Patient seen, examined, and case discussed with medical authorization specialist. Patient seen this morning during examination with at bedside. Patient noted for left sided facial droop, left sided upper and lower extremity weakness (4/5) compared to the right. Patient is awaiting official swallow evaluation. Patient has received aspirin 300mg per rectal dose until he passes swallow evaluation. Discussed with neurology to keep blood pressure about 150 systolic. I have increased IV fluids to 150 cc/hr this AM and ordered for additional fluid boluses. Patient ordered for blood work for hypercoaguability workup. Cardiac enzymes negatives. Patient's EKG show normal sinus rhythm no noted events on telemetry. Pending echocardiogram with bubble. 1. Acute Right Frontal Lobe Infarct * Admit to telemetry * Risk factor: obesity; family hx of stroke (father), former smoker * Physical exam findings: + Left-sided facial droop, + Left upper extremity weakness, + Left lower extremity weakness * Not a candidate for TPA, as symptoms started yesterday * CT head (08/14/18): Acute infarct of right middle cerebral artery (per official report) * CT head / neck (08/14/18): No evidence of thrombus, occlusion, stenosis etc ( see complete report) * MRI of brain without contrast (08/15/18): large acute right MCA territory infarction involving the posterior frontal and anterior parietal lobes. Mild global parenchymal volume loss, slightl advanced for the parient's age. * ECHO cardiogram with bubble study: Ordered * Lipid panel: WCJ=277, HDL=48 * In the ED, patient started Aspirin 325 mg PO X1, per MACY trial, ASA 81mg PO daily and Plavix 75mg PO daily for 21 days * Crestor 5mg PO QHS * Neuro checks Q4 * KOFI 1 negative, * KOFI 2: negative, NSR * KOFI 3: negative NSR * Pending swallow eval * PT/OT evaluation * Activity: Bedrest, Fall precautions * Repeat CBC, CMP in AM: pending 2. Impaired glucose tolerance * NyrZ1o=3.8 * Maintenance Of Way Superintendent referral 3. Obesity * thermostat machine tender referral 4. Former smoker * Nicoderm 1 patch 14mg Q24H 5. Prophylactic Measures * Lovenox 40mg SubQ daily * Swallow eval and treat * Neurochecks Q4H * PT/OT eval
[2018-08-15 08:11] LABS: BASO % 0.5 % (0.0-2.0); EOS # 0.1 K/uL (0.0-0.7); EOS % 2.3 % (0.0-4.0); HEMOGLOBIN 13.4 g/dL (12.0-18.0); LYMPH # 1.7 K/uL (1.0-4.3); LYMPH % 31.1 % (20.0-40.0); MEAN CELL VOLUME 77.8 fL (80.0-94.0); MEAN CORPUSCULAR HEMOGLOBIN 25.7 pg (27.0-31.0); MONO # 0.5 K/uL (0.0-0.8); MONO % 9.1 % (0.0-10.0); NEUT # 3.2 K/uL (1.8-7.0); NRBC % 0.2 % (0.0-2.0); RBC 5.23 Mil/uL (4.40-5.90); WHITE BLOOD COUNT 5.6 K/uL (4.8-10.8)
[2018-08-15] MEDS ORDERED: Sodium Chloride 0.9% 1,000 ML IV SCH (09:45)
[2018-08-15] MEDS ORDERED: Sodium Chloride 0.9% 1,000 ML IV ONE ×3 (09:45→21:01)
[2018-08-15 09:48] LABS: ALB/GLOB RATIO 1.3 (1.0-2.1); ALBUMIN 4.1 g/dL (3.5-5.0); ALT/SGPT 38 U/L (21-72); AST/SGOT 42 U/L (17-59); BLOOD UREA NITROGEN 11 mg/dL (9-20); CALCIUM 8.9 mg/dl (8.6-10.4); GFR NON-AFRICAN AMERICAN > 60
[2018-08-15] MEDS: Enoxaparin 40 mg Syringe SC SCH (10:30)
--- NOTE | 2018-08-15 10:41 | MRI ---
Date of service: But 08/14/2018 PROCEDURE: MRI BRAIN WITHOUT CONTRAST HISTORY: stroke COMPARISON: Noncontrast head CT from 08/14/2018. TECHNIQUE: Multiplanar, multisequence MR images of the brain were obtained without intravenous contrast enhancement. FINDINGS: HEMORRHAGE: None DWI: There is a large area of restricted diffusion in the right posterior frontal and anterior parietal lobes. BRAIN PARENCHYMA: There is T2/high FLAIR hyperintense signal corresponding to the area of restricted diffusion in the right posterior frontal and anterior parietal lobes. There is no mass, mass effect or abnormal extra-axial fluid collection. The midline sagittal structures are normal. VENTRICLES: There is mild age advanced global parenchymal volume loss and proportionate enlargement of the ventricles and cortical sulci. CRANIUM: There is normal bone marrow signal pattern. ORBITS: Grossly unremarkable. PARANASAL SINUSES/MASTOIDS: Predominantly clear. VASCULAR SYSTEM: There are normal signal voids in the larger intracranial arteries. OTHER FINDINGS: None. IMPRESSION: Large acute right MCA territory infarction involving the posterior frontal and anterior parietal lobes. Mild global parenchymal volume loss, slightly advanced for the patient's age. A preliminary report was provided by [facility].
[2018-08-16] MEDS: Sodium Chloride 0.9% 1,000 ML IV SCH ×4 (00:55→10:30)
[2018-08-16] MEDS ORDERED: Sodium Chloride 0.9% 1,000 ML IV ONE ×3 (01:14→09:14)
[2018-08-16] MEDS ORDERED: Sodium Chloride 0.9% 500 ML IV ONE (05:16)
[2018-08-16 08:20] LABS: BASO % 0.5 % (0.0-2.0); EOS # 0.2 K/uL (0.0-0.7); EOS % 2.6 % (0.0-4.0); HEMOGLOBIN 13.8 g/dL (12.0-18.0); LYMPH # 1.4 K/uL (1.0-4.3); LYMPH % 24.6 % (20.0-40.0); MEAN CELL VOLUME 77.6 fL (80.0-94.0); MEAN CORPUSCULAR HEMOGLOBIN 26.3 pg (27.0-31.0); MEAN PLATELET VOLUME 8.1 fL (7.2-11.7); MONO # 0.5 K/uL (0.0-0.8); NEUT # 3.7 K/uL (1.8-7.0); NEUT % 63.3 % (50.0-75.0); NRBC % 0.1 % (0.0-2.0); RBC 5.25 Mil/uL (4.40-5.90); RED CELL DISTRIBUTION WIDTH 15.8 % (11.5-14.5); WHITE BLOOD COUNT 5.8 K/uL (4.8-10.8)
--- NOTE | 2018-08-16 08:31 | CP.PCM.PN ---
<Aliza Ibrahim - Last Filed: 08/16/18 14:31> Subjective - Date & Time of Evaluation Date of Evaluation: 08/16/18 Time of Evaluation: 08:29 - Subjective Subjective: PGY1 Medicine Progress Note for Dr. Sevilla Patient seen and evaluated at bedside. Patient is requesting to eat, and states he is very hungry. Patient currently receiving fluids. Patient passed swallow eval and is able to eat without issue. Admits to bowel movement. No complaints overnight. No other current complaints. Patient denies chest pain, shortness of breath, palpitations, headache, dizziness, fever, chills, nausea, vomiting, diarrhea, numbness and/or tingling in extremities. Objective - Vital Signs/Intake and Output Vital Signs (last 24 hours): Temp Pulse Resp BP Pulse Ox 98.6 F 66 20 125/84 98 08/16/18 07:00 08/16/18 07:00 08/16/18 07:00 08/16/18 07:00 08/16/18 07:00 Intake and Output: 08/16/18 08/16/18 06:59 18:59 Intake Total 2800 Output Total 2500 Balance 300 - Medications Medications: Current Medications Aspirin (Aspirin Chewable) 81 mg PO DAILY [facility] Last Admin: 08/15/18 10:00 Dose: Not Given Clopidogrel Bisulfate (Plavix) 75 mg PO DAILY [facility] Last Admin: 08/15/18 10:00 Dose: Not Given Enoxaparin Sodium (Lovenox) 40 mg SC DAILY [facility] Last Admin: 08/15/18 10:30 Dose: 40 mg Sodium Chloride (Sodium Chloride 0.9%) 1,000 mls @ 200 mls/hr IV .Q5H [facility] Last Admin: 08/16/18 06:12 Dose: Not Given Nicotine (Nicoderm Cq) 1 patch TD DAILY [facility] Last Admin: 08/15/18 11:00 Dose: Not Given Pneumococcal Polyvalent Vaccine (Pneumovax 23 Vaccine) 0.5 ml IM .ONCE ONE Stop: 08/16/18 10:01 Rosuvastatin Calcium (Crestor) 20 mg PO HS [facility] Last Admin: 08/15/18 21:29 Dose: 20 mg - Labs Labs: 08/16/18 08:11 08/15/18 07:40 PT 12.8 SECONDS (9.7-12.2) H 08/14/18 13:39 INR 1.2 08/14/18 13:39 APTT 37 SECONDS (21-34) H 08/14/18 13:39 - Additional Findings Additional findings: - Constitutional Appears: Non-toxic, No Acute Distress - Head Exam Head Exam: ATRAUMATIC, NORMAL INSPECTION, NORMOCEPHALIC - Eye Exam Eye Exam: PERRL. absent: Conjunctival injection Pupil Exam: NORMAL ACCOMODATION, PERRL Additional comments: Deficit with abduction of left eye - ENT Exam ENT Exam: Mucous Membranes Moist, Normal Exam - Neck Exam Neck exam: Positive for: Full Rom, Normal Inspection - Respiratory Exam Respiratory Exam: Clear to Auscultation Bilateral, NORMAL BREATHING PATTERN. absent: Wheezes, Respiratory Distress - Cardiovascular Exam Cardiovascular Exam: +S1, +S2. absent: Diastolic murmur, Gallop, Rubs - GI/Abdominal Exam GI & Abdominal Exam: Normal Bowel Sounds, Soft. absent: Distended, Firm, Guarding - Extremities Exam Extremities exam: Positive for: full ROM, normal capillary refill, normal inspection, pedal pulses present. Negative for: calf tenderness, joint swelling , pedal edema, tenderness - Back Exam Back exam: absent: CVA tenderness (L) Additional comments: skin on upper thoracic area appears garner compared to rest of unexposed skin areas. - Neurological Exam Neurological exam: Alert, Oriented x3, Reflexes Normal Additional comments: Facial droop appreciated on left - forehead spared. - Expanded Neurological Exam Expanded Patient oriented to: person, place, time Cranial nerves: EOM's Intact: Abnormal Left (abduction of left eye ), Facial Sensation: Normal, Tongue Deviation: Abnormal Left (deviatd to left side ) Ataxia: No Cerebellar Function: Finger to Nose: Normal, Heel to Florentino: Normal Upper motor neuron: Babinski Sign: Normal, Pronator Drift: Abnormal Left Sensory exam: Lower Extremity 2 Point Discrimination: Normal, Lower Extremity Light Touch: Normal, Lower Extremity Pin Prick: Normal, Lower Extremity Temperature: Normal, Upper Extremity 2 Point Discrimination: Normal, Upper Extremity Light Touch: Normal, Upper Extremity Pin Prick: Normal, Upper Extremity Temperature: Normal Neuro motor strength exam: Left Upper Extremity: 4, Right Upper Extremity: 5, Left Lower Extremity: 4, Right Lower Extremity: 5 DTR: Bicep Left: 2+, Bicep Right: 2+, Patellar Left: 2+, Patellar Right: 2+ Babinsky's negative bilaterally. - Psychiatric Exam Psychiatric exam: Normal Affect - Skin Skin Exam: Dry, Intact, Normal Color, Warm Assessment and Plan - Assessment and Plan (Free Text) Assessment: 1. Acute Right Frontal Lobe Infarct - + Left-sided facial droop - + Left upper extremity weakness - + Left lower extremity weakness - Not a candidate for TPA, as symptoms started > 20 hours since code stroke called - Per Neurology (Dr. Kern, covering for Dr. Alvarez) can discontinue fluids. * Discontinued NS @ 200cc/hr * Medical treatment to increase blood pressure is no longer indicated at this time - Cardiology consulted (Dr. Reyez) for loop recorder for embolic cause for stroke, recommendations appreciated - CT head (08/14/18): Acute infarct of right middle cerebral artery (per official report) - CT head / neck (08/14/18): No evidence of thrombus, occlusion, stenosis etc ( see complete report) - MRI of brain without contrast: large acute right MCA territory infarction involving the posterior frontal and anterior parietal lobes. Mild global parenchymal volume loss, slightly advanced for the patient's age. - ECHO cardiogram with bubble study completed: pending report - Lipid panel: MPA=311, HDL=48 - Medications to be taken for 21 days * ASA 81mg PO daily * Plavix 75mg PO daily - Given once: ASA 300mg RS - Patient meets criteria for high intensity statin therapy: Thus, Increased Crestor 5mg PO QHS --> Crestor 20mg PO HS - Neuro checks Q4 - KOFI series: negative x3 - Patient is on Heart healthy diet, as he passed the swallow eval, per speech therapy - PT/OT eval: Patient will benefit from home PT. - Activity: Bedrest, Fall precautions - CBC within normal limits - CMP within normal limits - Monitor on telemetry Impaired glucose tolerate - HlrM0k=6.8 - Slurry Tank Tender referral Obese - filling station laborer referral Prophylactic Measures - Lovenox 40mg SubQ daily Former smoker - Nicoderm 1 patch 14mg Q24H NIH Stroke Scale: 3 - Evaluated patient > 20 hours post signs and symptoms See History and Physical Note for NIHSS from 08/14/18. Patient seen and case discussed in detail with Dr. Roel Ibrahim PGY1 <Carol Sevilla V - Last Filed: 08/17/18 09:31> Objective - Vital Signs/Intake and Output Vital Signs (last 24 hours): Temp Pulse Resp BP Pulse Ox 98.6 F 77 20 125/84 98 08/16/18 07:00 08/16/18 09:00 08/16/18 07:00 08/16/18 07:00 08/16/18 07:00 Intake and Output: 08/16/18 08/16/18 06:59 18:59 Intake Total 2800 Output Total 2500 Balance 300 - Medications Medications: Current Medications Aspirin (Aspirin Chewable) 81 mg PO DAILY [facility] Last Admin: 08/15/18 10:00 Dose: Not Given Clopidogrel Bisulfate (Plavix) 75 mg PO DAILY [facility] Last Admin: 08/15/18 10:00 Dose: Not Given Enoxaparin Sodium (Lovenox) 40 mg SC DAILY [facility] Last Admin: 08/15/18 10:30 Dose: 40 mg Sodium Chloride (Sodium Chloride 0.9%) 1,000 mls @ 200 mls/hr IV .Q5H [facility] Last Admin: 08/16/18 06:12 Dose: Not Given Sodium Chloride (Sodium Chloride 0.9%) 1,000 mls @ 1,000 mls/hr IV .Q1H ONE Stop: 08/16/18 10:13 Nicotine (Nicoderm Cq) 1 patch TD DAILY [facility] Last Admin: 08/15/18 11:00 Dose: Not Given Pneumococcal Polyvalent Vaccine (Pneumovax 23 Vaccine) 0.5 ml IM .ONCE ONE Stop: 08/16/18 10:01 Rosuvastatin Calcium (Crestor) 20 mg PO [facility] Last Admin: 08/15/18 21:29 Dose: 20 mg - Labs Labs: 08/16/18 08:11 08/16/18 08:11 PT 12.8 SECONDS (9.7-12.2) H 08/14/18 13:39 INR 1.2 08/14/18 13:39 APTT 37 SECONDS (21-34) H 08/14/18 13:39 Attending/Attestation - Attestation I have personally seen and examined this patient.: Yes I have fully participated in the care of the patient.: Yes I have reviewed all pertinent clinical information, including history, physical exam and plan: Yes Notes (Text): Patient seen, examined, and case discussed with program medical director. Patient seen this morning during examination with at bedside. Patient noted for left sided facial droop, left sided upper and lower extremity weakness (4/5) compared to the right. Patient is awaiting official swallow evaluation. Patient has received aspirin 300mg per rectal dose until he passes swallow evaluation. Discussed with neurology to keep blood pressure about 150 systolic. Patient is on IV fluids to maintain blood pressure recommendations. Patient ordered for blood work for hypercoaguability workup collected yesterday. Cardiac enzymes negatives. Patient's EKG show normal sinus rhythm no noted events on telemetry. Echo bubble no abnormality noted Discussed with neurology, recommended for loop recorder; I have placed cardiology (Dr. Reyez) for placement for loop recorder. Assessment/Plan 1. Acute Right Frontal Lobe Infarct * Admit to telemetry * Risk factor: obesity; family hx of stroke (father), former smoker * Physical exam findings: + Left-sided facial droop, + Left upper extremity weakness, + Left lower extremity weakness * Not a candidate for TPA, as symptoms started yesterday * CT head (08/14/18): Acute infarct of right middle cerebral artery (per official report) * CT head / neck (08/14/18): No evidence of thrombus, occlusion, stenosis etc ( see complete report) * MRI of brain without contrast (08/15/18): large acute right MCA territory infarction involving the posterior frontal and anterior parietal lobes. Mild global parenchymal volume loss, slightl advanced for the parient's age. * ECHO cardiogram with bubble study: Ordered * Lipid panel: OIT=608, HDL=48 * In the ED, patient started Aspirin 325 mg PO X1, per MACY trial, ASA 81mg PO daily and Plavix 75mg PO daily for 21 days * Crestor 5mg PO QHS * Neuro checks Q4 * KOFI 1 negative, * KOFI 2: negative, NSR * KOFI 3: negative NSR * Pending swallow eval * PT/OT evaluation * Activity: Bedrest, Fall precautions * Repeat CBC, CMP in AM: pending 2. Impaired glucose tolerance * HhnH9l=7.8 * Slurry Tank Tender referral 3. Obesity * Slurry Tank Tender referral 4. Former smoker * Nicoderm 1 patch 14mg Q24H 5. Prophylactic Measures * Lovenox 40mg SubQ daily * Swallow eval and treat * Neurochecks Q4H * PT eval: home with outpatient physical therapy * OT eval: does not need skilled OT
[2018-08-16 08:43] LABS: ALB/GLOB RATIO 1.3 (1.0-2.1); ALBUMIN 4.1 g/dL (3.5-5.0); ALT/SGPT 30 U/L (21-72); AST/SGOT 31 U/L (17-59); BLOOD UREA NITROGEN 7 mg/dL (9-20); CALCIUM 8.5 mg/dl (8.6-10.4); GFR NON-AFRICAN AMERICAN > 60
[2018-08-16] MEDS ORDERED: Pneumococcal 23-Valent Vaccine IM ONE (10:00)
[2018-08-16] MEDS: Enoxaparin 40 mg Syringe SC SCH (10:40)
--- NOTE | 2018-08-16 16:53 | CARD ---
APPROVED REPORT Date of service: 08/15/2018 EXAM: Two-dimensional and M-mode echocardiogram with Doppler, color Doppler with saline bubble. Other Information Quality : GoodRhythm : INDICATION CVA/TIA Echo Enhancing Agent Indication: Rule Out Septal Defect Agent/Amount Used: Agitated Saline 2D DIMENSIONS IVSd0.7 (0.7-1.1cm)Aortic Root (2D)2.9 (2.0-3.7cm) LVDd4.6 (3.9-5.9cm)LVOT Diameter3.1 (1.8-2.4cm) PWd0.9 (0.7-1.1cm)LVDs3.0 (2.5-4.0cm) FS (%) 35.3 %LVEF (%)64.7 (>50%) M-Mode DIMENSIONS RVDd2.11 (2.1-3.2cm)Left Atrium (MM)3.18 (2.5-4.0cm) IVSd1.24 (0.7-1.1cm)Aortic Root3.15 (2.2-3.7cm) LVDd4.91 (4.0-5.6cm)Aortic Cusp Exc.2.06 (1.5-2.0cm) PWd0.88 (0.7-1.1cm)FS (%) 42 % LVDs2.83 (2.0-3.8cm)LVEF (%)73 (>50%) Mitral Valve MV E Nrmkegfg80.4cm/sMV A Lxmphjcf37.5cm/sE/A ratio1.4 TDI E/Lateral E'0.0E/Medial E'0.0 Tricuspid Valve TR Peak [id number]/sTR Peak [id number] LEFT VENTRICLE The left ventricle is normal size. There is normal left ventricular wall thickness. The left ventricular function is normal. The left ventricular ejection fraction is within the normal range. There is normal LV segmental wall motion. The left ventricular diastolic function is normal. RIGHT VENTRICLE The right ventricle is normal size. ATRIA The left atrium size is normal. The right atrium size is normal. AORTIC VALVE The aortic valve is normal in structure. MITRAL VALVE The mitral valve is normal in structure. TRICUSPID VALVE The tricuspid valve is normal in structure. <Conclusion> Normal LV systolic function. Normal chamber size. No significant valvular abnormality seen. No bubble seen accross the Atrial septum.
--- NOTE | 2018-08-16 22:46 | CARD ---
APPROVED REPORT Date of service: 08/14/2018 EKG Measurement Heart [id number] [id number] [id number] <Conclusion> Normal sinus rhythm Normal ECG
--- NOTE | 2018-08-16 22:49 | CARD ---
APPROVED REPORT Date of service: 08/14/2018 EKG Measurement Heart [id number] 140P-8 [id number] <Conclusion> Normal sinus rhythm Normal ECG
[2018-08-17 07:55] LABS: BASO % 0.7 % (0.0-2.0); EOS # 0.2 K/uL (0.0-0.7); EOS % 2.9 % (0.0-4.0); HEMOGLOBIN 13.9 g/dL (12.0-18.0); LYMPH # 1.3 K/uL (1.0-4.3); MEAN CELL VOLUME 77.6 fL (80.0-94.0); MEAN CORPUSCULAR HEMOGLOBIN 25.6 pg (27.0-31.0); MEAN CORPUSCULAR HGB CONC 32.9 g/dL (33.0-37.0); MEAN PLATELET VOLUME 7.8 fL (7.2-11.7); MONO # 0.6 K/uL (0.0-0.8); MONO % 9.8 % (0.0-10.0); NEUT # 3.6 K/uL (1.8-7.0); NEUT % 63.6 % (50.0-75.0); RBC 5.42 Mil/uL (4.40-5.90); RED CELL DISTRIBUTION WIDTH 15.9 % (11.5-14.5); WHITE BLOOD COUNT 5.7 K/uL (4.8-10.8)
[2018-08-17 08:15] LABS: ALB/GLOB RATIO 1.2 (1.0-2.1); ALT/SGPT 46 U/L (21-72); AST/SGOT 39 U/L (17-59); BLOOD UREA NITROGEN 8 mg/dL (9-20); CALCIUM 8.9 mg/dl (8.6-10.4); GFR NON-AFRICAN AMERICAN > 60
[2018-08-17] MEDS: Enoxaparin 40 mg Syringe SC SCH (09:23)
--- NOTE | 2018-08-17 09:34 | CP.PCM.PN ---
Subjective - Date & Time of Evaluation Date of Evaluation: 08/17/18 Time of Evaluation: 09:30 - Subjective Subjective: Medical Attending Note: Patient seen and examined. Patient denies headache, denies chest pain, denies palpitations, denies abdominal pain, reports he has had a bowel movement, denies nausea, denies vomitting, denies dysuria, denies any worsening weakness. Objective - Vital Signs/Intake and Output Vital Signs (last 24 hours): Temp Pulse Resp BP Pulse Ox 98.2 F 66 20 122/77 97 08/17/18 07:00 08/17/18 07:00 08/17/18 07:00 08/17/18 07:00 08/17/18 07:00 Intake and Output: 08/17/18 08/17/18 06:59 18:59 Output Total 300 Balance -300 - Medications Medications: Current Medications Aspirin (Aspirin Chewable) 81 mg PO DAILY [facility] Last Admin: 08/17/18 09:23 Dose: 81 mg Clopidogrel Bisulfate (Plavix) 75 mg PO DAILY [facility] Last Admin: 08/17/18 09:23 Dose: 75 mg Enoxaparin Sodium (Lovenox) 40 mg SC DAILY [facility] Last Admin: 08/17/18 09:23 Dose: 40 mg Nicotine (Nicoderm Cq) 1 patch TD DAILY [facility] Last Admin: 08/17/18 09:23 Dose: 1 patch Rosuvastatin Calcium (Crestor) 20 mg PO HS [facility] Last Admin: 08/16/18 22:43 Dose: 20 mg - Labs Labs: 08/17/18 07:45 08/17/18 07:45 PT 12.8 SECONDS (9.7-12.2) H 08/14/18 13:39 INR 1.2 08/14/18 13:39 APTT 37 SECONDS (21-34) H 08/14/18 13:39 - Constitutional Appears: Non-toxic, No Acute Distress - Head Exam Additional comments: facial droop (left side) noticable when smiling - Eye Exam Eye Exam: EOMI, PERRL. absent: Nystagmus, Scleral icterus Pupil Exam: PERRL. absent: Miosis - ENT Exam ENT Exam: Mucous Membranes Moist - Respiratory Exam Respiratory Exam: Clear to Ausculation Bilateral, NORMAL BREATHING PATTERN. absent: Rales, Rhonchi, Wheezes - Cardiovascular Exam Cardiovascular Exam: REGULAR RHYTHM, +S1, +S2 - GI/Abdominal Exam GI & Abdominal Exam: Soft, Normal Bowel Sounds. absent: Distended, Firm, Guarding, Rigid, Tenderness, Rebound - Extremities Exam Extremities Exam: absent: Pedal Edema, Tenderness - Neurological Exam Neurological Exam: Alert, Awake, CN II-XII Intact (except Cranial 7 (facial weakness)), Oriented x3 Neuro motor strength exam: Left Upper Extremity: 4, Right Upper Extremity: 5, Left Lower Extremity: 4, Right Lower Extremity: 5 Additional comments: negative babinski b/l - Psychiatric Exam Psychiatric exam: Normal Affect, Normal Mood - Skin Skin Exam: Dry, Intact, Normal Color, Warm Attending/Attestation - Attestation I have personally seen and examined this patient.: Yes I have fully participated in the care of the patient.: Yes I have reviewed all pertinent clinical information, including history, physical exam and plan: Yes Notes (Text): Patient seen, examined, and case discussed with medical records coordinator. Patient seen this morning. No family present at bedside. Patient noted for left sided facial droop, left sided upper and lower extremity weakness (4/5) compared to the right. Patient ordered for blood work for hypercoaguability workup collected couple days ago. Cardiac enzymes negatives. Patient's EKG show normal sinus rhythm no noted events on telemetry. Echo bubble no abnormality noted Discussed with neurology, recommended for loop recorder yesterday; I have placed cardiology (Dr. Reyez) for placement for loop recorder. Assessment/Plan 1. Acute Right Frontal Lobe Infarct * Admit to telemetry * Cardiology (Dr. eRyez) for consult for loop recorder placement * Neurology (Dr. Alvarez/Concha) for stroke-->help appreciated * Risk factor: obesity; family hx of stroke (father), former smoker * Physical exam findings: + Left-sided facial droop, + Left upper extremity weakness, + Left lower extremity weakness * Not a candidate for TPA, as symptoms started day prior to admission * CT head (08/14/18): Acute infarct of right middle cerebral artery (per official report) * CT head / neck (08/14/18): No evidence of thrombus, occlusion, stenosis etc ( see complete report) * MRI of brain without contrast (08/15/18): large acute right MCA territory infarction involving the posterior frontal and anterior parietal lobes. Mild global parenchymal volume loss, slightl advanced for the parient's age. * ECHO cardiogram with bubble study: no abnormality noted * Lipid panel: RYC=202, HDL=48 * In the ED, patient started Aspirin 325 mg PO X1, per MACY trial, ASA 81mg PO daily and Plavix 75mg PO daily for 21 days * Crestor 5mg PO QHS * Neuro checks Q4 * KOFI 1 negative, * KOFI 2: negative, NSR * KOFI 3: negative NSR * Passed swallow eval 08/15/18 * PT/OT evaluation * Activity: Bedrest, Fall precautions * Repeat CBC, CMP in AM: pending 2. Impaired glucose tolerance * [id number]=7.8 * Livestock Agent referral * Counselled to make dietary 3. Obesity * Livestock Agent referral 4. Former smoker * Nicoderm 1 patch 14mg Q24H 5. Prophylactic Measures * Lovenox 40mg SubQ daily * Swallow eval and treat * Neurochecks Q4H * PT eval: home with outpatient physical therapy * OT eval: does not need skilled OT Disposition: pending cardiology evaluation for loop recorder given concern for embolic cause of stroke since patient does not have apparent risk factor. pending hypercoaguable workup.
--- NOTE | 2018-08-17 09:49 | CP.PCM.PN ---
Subjective - Date & Time of Evaluation Date of Evaluation: 08/17/18 Time of Evaluation: 09:49 Objective - Vital Signs/Intake and Output Vital Signs (last 24 hours): Temp Pulse Resp BP Pulse Ox 98.2 F 66 20 122/77 97 08/17/18 07:00 08/17/18 07:00 08/17/18 07:00 08/17/18 07:00 08/17/18 07:00 Intake and Output: 08/17/18 08/17/18 06:59 18:59 Output Total 300 Balance -300 - Medications Medications: Current Medications Aspirin (Aspirin Chewable) 81 mg PO DAILY [facility] Last Admin: 08/17/18 09:23 Dose: 81 mg Clopidogrel Bisulfate (Plavix) 75 mg PO DAILY [facility] Last Admin: 08/17/18 09:23 Dose: 75 mg Enoxaparin Sodium (Lovenox) 40 mg SC DAILY [facility] Last Admin: 08/17/18 09:23 Dose: 40 mg Nicotine (Nicoderm Cq) 1 patch TD DAILY [facility] Last Admin: 08/17/18 09:23 Dose: 1 patch Rosuvastatin Calcium (Crestor) 20 mg PO HS [facility] Last Admin: 08/16/18 22:43 Dose: 20 mg - Labs Labs: 08/17/18 07:45 08/17/18 07:45 PT 12.8 SECONDS (9.7-12.2) H 08/14/18 13:39 INR 1.2 08/14/18 13:39 APTT 37 SECONDS (21-34) H 08/14/18 13:39
--- NOTE | 2018-08-17 12:58 | CARD ---
APPROVED REPORT Date of service: 08/15/2018 EKG Measurement Heart [id number] NC 134P-15 [id number] <Conclusion> Sinus bradycardia Otherwise normal ECG
--- NOTE | 2018-08-18 07:37 | CP.PCM.PN ---
Subjective - Date & Time of Evaluation Date of Evaluation: 08/18/18 Time of Evaluation: 07:37 - Subjective Subjective: Progress Note for Dr. Jay Hyman Patient seen and examined at bedside this morning. is at bedside with patient. No acute events overnight. Patient is without new complaints. Patient denies headache, chest pain, palpitations, and/or abdominal pain. Patient endorses bowel movement. Patient denies nausea, vomiting, fever, chills, dysuria. Objective - Vital Signs/Intake and Output Vital Signs (last 24 hours): Temp Pulse Resp BP Pulse Ox 97.4 F L 60 20 125/81 95 08/17/18 23:45 08/18/18 03:23 08/17/18 23:45 08/17/18 23:45 08/17/18 23:45 - Medications Medications: Current Medications Aspirin (Aspirin Chewable) 81 mg PO DAILY [facility] Last Admin: 08/17/18 09:23 Dose: 81 mg Clopidogrel Bisulfate (Plavix) 75 mg PO DAILY [facility] Last Admin: 08/17/18 09:23 Dose: 75 mg Enoxaparin Sodium (Lovenox) 40 mg SC DAILY [facility] Last Admin: 08/17/18 09:23 Dose: 40 mg Nicotine (Nicoderm Cq) 1 patch TD DAILY [facility] Last Admin: 08/17/18 09:23 Dose: 1 patch Rosuvastatin Calcium (Crestor) 20 mg PO HS [facility] Last Admin: 08/17/18 22:48 Dose: 20 mg - Labs Labs: 08/17/18 07:45 08/17/18 07:45 PT 12.8 SECONDS (9.7-12.2) H 08/14/18 13:39 INR 1.2 08/14/18 13:39 APTT 37 SECONDS (21-34) H 08/14/18 13:39 - Additional Findings Additional findings: - Constitutional Appears: Non-toxic, No Acute Distress - Head Exam Additional comments: facial droop (left side) noticable when smiling - Eye Exam Eye Exam: EOMI, PERRL. absent: Nystagmus, Scleral icterus Pupil Exam: PERRL. absent: Miosis - ENT Exam ENT Exam: Mucous Membranes Moist - Respiratory Exam Respiratory Exam: Clear to Ausculation Bilateral, NORMAL BREATHING PATTERN. absent: Rales, Rhonchi, Wheezes - Cardiovascular Exam Cardiovascular Exam: REGULAR RHYTHM, +S1, +S2 - GI/Abdominal Exam GI & Abdominal Exam: Soft, Normal Bowel Sounds. absent: Distended, Firm, Guarding, Rigid, Tenderness, Rebound - Extremities Exam Extremities Exam: absent: Pedal Edema, Tenderness - Neurological Exam Neurological Exam: Alert, Awake, CN II-XII Intact (except Cranial 7 (facial weakness)), Oriented x3 Neuro motor strength exam: Left Upper Extremity: 4, Right Upper Extremity: 5, Left Lower Extremity: 4, Right Lower Extremity: 5 Additional comments: negative babinski b/l - Psychiatric Exam Psychiatric exam: Normal Affect, Normal Mood - Skin Skin Exam: Dry, Intact, Normal Color, Warm Assessment and Plan - Assessment and Plan (Free Text) Assessment: 1. Acute Right Frontal Lobe Infarct * Admit to telemetry * Cardiology (Dr. Reyez) for consult for loop recorder placement * Per Web Content Developer on Cardiology Service, plan is for ISABELLA tomorrow morning. Needed prior to loop recorder placement * Neurology (Dr. Alvarez/Concha) for stroke-->help appreciated * Risk factor: obesity; family hx of stroke (father), former smoker * Physical exam findings: + Left-sided facial droop, + Left upper extremity weakness, + Left lower extremity weakness * Not a candidate for TPA, as symptoms started day prior to admission * CT head (08/14/18): Acute infarct of right middle cerebral artery (per official report) * CT head / neck (08/14/18): No evidence of thrombus, occlusion, stenosis etc ( see complete report) * MRI of brain without contrast (08/15/18): large acute right MCA territory infarction involving the posterior frontal and anterior parietal lobes. Mild global parenchymal volume loss, slightl advanced for the parient's age. * ECHO cardiogram with bubble study: no abnormality noted * Lipid panel: UGA=391, HDL=48 * In the ED, patient started Aspirin 325 mg PO X1 * per MACY trial, ASA 81mg PO daily and Plavix 75mg PO daily for 21 days * Crestor 5mg PO QHS * Neuro checks Q4 * KOFI 1 negative, * KOFI 2: negative, NSR * KOFI 3: negative NSR * Passed swallow eval 08/15/18 * PT/OT evaluation * Activity: Bedrest, Fall precautions * Repeat CBC, CMP in AM: pending 2. Impaired glucose tolerance * [id number]=5.8 * Flatwork Catcher referral * Counselled to make dietary modifications 3. Obesity * Flatwork Catcher referral 4. Former smoker * Nicoderm 1 patch 14mg Q24H 5. Prophylactic Measures * Lovenox 40mg SubQ daily * Swallow eval and treat * Neurochecks Q4H * PT eval: home with outpatient physical therapy * OT eval: does not need skilled OT Disposition: Pending ISABELLA procedure (Per Dr. Reyez, will schedule for 08/19/18 AM which is needed prior to loop recorder placement for embolic cause of stroke since patient does not have apparent risk factor. pending hypercoagulable workup. Patient seen and case discussed with Alverto Lyles PGY1
[2018-08-18 07:41] LABS: BASO % 0.7 % (0.0-2.0); EOS # 0.2 K/uL (0.0-0.7); EOS % 2.7 % (0.0-4.0); HEMOGLOBIN 14.4 g/dL (12.0-18.0); LYMPH # 1.4 K/uL (1.0-4.3); LYMPH % 23.9 % (20.0-40.0); MEAN CELL VOLUME 77.8 fL (80.0-94.0); MEAN CORPUSCULAR HEMOGLOBIN 26.1 pg (27.0-31.0); MEAN CORPUSCULAR HGB CONC 33.5 g/dL (33.0-37.0); MEAN PLATELET VOLUME 8.5 fL (7.2-11.7); MONO # 0.6 K/uL (0.0-0.8); NEUT # 3.6 K/uL (1.8-7.0); NEUT % 62.7 % (50.0-75.0); NRBC % 0.1 % (0.0-2.0); RBC 5.53 Mil/uL (4.40-5.90); RED CELL DISTRIBUTION WIDTH 15.6 % (11.5-14.5); WHITE BLOOD COUNT 5.7 K/uL (4.8-10.8)
[2018-08-18 07:51] LABS: ALB/GLOB RATIO 1.3 (1.0-2.1); ALBUMIN 4.2 g/dL (3.5-5.0); ALT/SGPT 49 U/L (21-72); AST/SGOT 39 U/L (17-59); BLOOD UREA NITROGEN 10 mg/dL (9-20); CALCIUM 8.8 mg/dl (8.6-10.4); GFR NON-AFRICAN AMERICAN > 60
--- NOTE | 2018-08-18 09:54 | CP.PCM.CON ---
History of Present Illness - History of Present Illness History of Present Illness: CARDIOLOGY CONSULT NOTE FOR DR. JAYESH Osorio D.O. PGY-1 CC: Acute onset L sided weakness since 08/13/18 Pt is a 48 y/o [place] male with no reported pmhx presented to ED with complaints of acute onset L sided weakness that began on 08/13/18 evening. As per , pt had fell several times due to weakness in his legs. She had noticed facial weakness, and slurred speech. Pt presented to ED the next am with the same complaints of L sided facial droop. He reports never having these symptoms before and reports he was always generally healthy. He denies recent immobilization, recent surgeries, recent travel or long flights. He denies any history of liver, kidney or heart disorders. Upon interview this am, pt reports no acute complaints. He was eating breakfast well, with no difficulty. He reports his facial droop has improved. He denies fevers, chills, chest pain, palpitations, headache, dizziness, nausea, vomiting, constipation, diarrhea, dysuria. PMH: Denies SH: Denies smoking. Drinks ~12 beers on weekends PSH: Denies All: NKDA Hosp: Denies Famhx: Father: Stroke. Mother: Denies Meds: See MAR. Reviewed PMD: [employer]: Denies Review of Systems - Review of Systems Review of Systems: as per HPI Past Patient History - Infectious Disease Hx of Infectious Diseases: None - Past Medical History & Family History Past Medical History?: No - Past Social History Smoking Status: Light Smoker < 10 Cigarettes Daily (for 1 year, stopped 3 years ago) Drugs: Denies Home Situation {Lives}: With Family - MUSCULOSKELETAL/RHEUMATOLOGICAL Hx Falls: No - PSYCHIATRIC Hx Substance Use: No - SURGICAL HISTORY Hx Surgeries: No - ANESTHESIA Hx Anesthesia: No Meds Allergies/Adverse Reactions: Allergies Allergy/AdvReac Type Severity Reaction Status Date / Time No Known Allergies Allergy Verified 04/30/15 12:26 - Medications Medications: Current Medications Aspirin (Aspirin Chewable) 81 mg PO DAILY [facility] Last Admin: 08/17/18 09:23 Dose: 81 mg Clopidogrel Bisulfate (Plavix) 75 mg PO DAILY [facility] Last Admin: 08/17/18 09:23 Dose: 75 mg Enoxaparin Sodium (Lovenox) 40 mg SC DAILY [facility] Last Admin: 08/17/18 09:23 Dose: 40 mg Rosuvastatin Calcium (Crestor) 20 mg PO HS [facility] Last Admin: 08/17/18 22:48 Dose: 20 mg Physical Exam - Constitutional Appears: Well, Non-toxic, No Acute Distress - Head Exam Head Exam: ATRAUMATIC, NORMAL INSPECTION - Eye Exam Eye Exam: EOMI, Normal appearance, PERRL - ENT Exam ENT Exam: Mucous Membranes Moist, Normal Exam - Neck Exam Neck exam: Positive for: Normal Inspection - Respiratory Exam Respiratory Exam: Clear to Auscultation Bilateral, NORMAL BREATHING PATTERN - Cardiovascular Exam Cardiovascular Exam: REGULAR RHYTHM, +S1, +S2 - GI/Abdominal Exam GI & Abdominal Exam: Soft. absent: Tenderness - Extremities Exam Extremities exam: Positive for: normal inspection. Negative for: tenderness - Neurological Exam Neurological exam: Alert, Oriented x3 Additional comments: L sided facial weakness. Sensation intact bilateral upper/lower extremities. Strength 4/5 R sided upper/lower extremities. 5/5 strength upper/lower L extremities - Psychiatric Exam Psychiatric exam: Normal Affect, Normal Mood - Skin Skin Exam: Dry, Intact, Warm Results - Vital Signs Recent Vital Signs: Last Vital Signs Temp 97.9 F 08/18/18 08:29 Pulse 66 08/18/18 08:29 Resp 20 08/18/18 08:29 BP 120/80 08/18/18 08:29 Pulse Ox 99 08/18/18 08:29 - Labs Result Diagrams: 08/18/18 07:47 08/18/18 07:20 Labs: Laboratory Results - last 24 hr 08/15/18 08/17/18 08/17/18 07:40 11:32 16:58 WBC RBC Hgb Hct MCV MCH MCHC RDW Plt Count MPV Neut % (Auto) Lymph % (Auto) Nash % (Auto) Eos % (Auto) Baso % (Auto) Neut # (Auto) Lymph # (Auto) Nash # (Auto) Eos # (Auto) Baso # (Auto) Protein S Activity 107 Sodium Potassium Chloride Carbon Dioxide Anion Gap BUN Creatinine Est GFR ( Amer) Est GFR (Non-Af Amer) POC Glucose (mg/dL) 119 H 105 Random Glucose Calcium Total Bilirubin AST ALT Alkaline Phosphatase Total Protein Albumin Globulin Albumin/Globulin Ratio 08/17/18 08/18/18 08/18/18 22:37 06:54 07:20 WBC RBC Hgb Hct MCV MCH MCHC RDW Plt Count MPV Neut % (Auto) Lymph % (Auto) Nash % (Auto) Eos % (Auto) Baso % (Auto) Neut # (Auto) Lymph # (Auto) Nash # (Auto) Eos # (Auto) Baso # (Auto) Protein S Activity Sodium 140 Potassium 3.8 Chloride 104 Carbon Dioxide 22 Anion Gap 18 BUN 10 Creatinine 0.5 L Est GFR ( Amer) > 60 Est GFR (Non-Af Amer) > 60 POC Glucose (mg/dL) 89 80 Random Glucose 102 Calcium 8.8 Total Bilirubin 0.5 AST 39 ALT 49 Alkaline Phosphatase 85 Total Protein 7.4 Albumin 4.2 Globulin 3.2 Albumin/Globulin Ratio 1.3 08/18/18 07:47 WBC 5.7 RBC 5.53 Hgb 14.4 Hct 43.0 MCV 77.8 L MCH 26.1 L MCHC 33.5 RDW 15.6 H Plt Count 257 MPV 8.5 Neut % (Auto) 62.7 Lymph % (Auto) 23.9 Nash % (Auto) 10.0 Eos % (Auto) 2.7 Baso % (Auto) 0.7 Neut # (Auto) 3.6 Lymph # (Auto) 1.4 Nash # (Auto) 0.6 Eos # (Auto) 0.2 Baso # (Auto) 0.0 Protein S Activity Sodium Potassium Chloride Carbon Dioxide Anion Gap BUN Creatinine Est GFR ( Amer) Est GFR (Non-Af Amer) POC Glucose (mg/dL) Random Glucose Calcium Total Bilirubin AST ALT Alkaline Phosphatase Total Protein Albumin Globulin Albumin/Globulin Ratio Assessment & Plan - Assessment and Plan (Free Text) Assessment: 48 y/o M with no significant pmhx admitted for L sided weakness and falls. Pt was found to have L sided infarct in the MCA territory seen on both MRI & CT scan. Initial TTE with bubble showed no ASD or PFO or valvular abnormalities. EKG was NSR. Pt's symptoms have been improving, but pt still has some residual weakness Plan: Acute MCA territory infarction ISABELLA with bubble tomorrow am. f/u hypercoagulable workup Continue aspirin, plavix, statin Continue DVT ppx Appreciate neuro recs HHD Case seen, examined and discussed with attending physician, Dr. Reyez. Further recs per him.
[2018-08-18] MEDS: Enoxaparin 40 mg Syringe SC SCH (10:28)
[2018-08-19 01:25] LABS: URINE BACTERIA RARE (<OCC); URINE BILIRUBIN NEGATIVE (NEGATIVE); URINE BLOOD NEGATIVE (NEGATIVE); URINE CLARITY Clear (Clear); URINE COLOR Yellow (YELLOW); URINE GLUCOSE (UA) NORMAL (Normal); URINE LEUKOCYTE ESTERASE NEG Leu/uL (Negative); URINE PROTEIN NEGATIVE (NEGATIVE); URINE UROBILINOGEN NORMAL mg/dL (0.2-1.0)
[2018-08-19 04:52] VITALS: RESP 20
[2018-08-19 06:40] LABS: BASO % 0.8 % (0.0-2.0); EOS # 0.2 K/uL (0.0-0.7); EOS % 2.7 % (0.0-4.0); HEMOGLOBIN 14.4 g/dL (12.0-18.0); LYMPH # 1.8 K/uL (1.0-4.3); LYMPH % 31.2 % (20.0-40.0); MEAN CELL VOLUME 78.7 fL (80.0-94.0); MEAN CORPUSCULAR HEMOGLOBIN 25.8 pg (27.0-31.0); MEAN CORPUSCULAR HGB CONC 32.7 g/dL (33.0-37.0); MEAN PLATELET VOLUME 8.4 fL (7.2-11.7); MONO # 0.7 K/uL (0.0-0.8); MONO % 11.7 % (0.0-10.0); NEUT # 3.1 K/uL (1.8-7.0); NEUT % 53.6 % (50.0-75.0); RBC 5.58 Mil/uL (4.40-5.90); RED CELL DISTRIBUTION WIDTH 15.8 % (11.5-14.5); WHITE BLOOD COUNT 5.7 K/uL (4.8-10.8)
[2018-08-19 07:37] LABS: ALB/GLOB RATIO 1.4 (1.0-2.1); ALBUMIN 4.1 g/dL (3.5-5.0); ALT/SGPT 60 U/L (21-72); AST/SGOT 48 U/L (17-59); BLOOD UREA NITROGEN 11 mg/dL (9-20); CALCIUM 9.1 mg/dl (8.6-10.4); GFR NON-AFRICAN AMERICAN > 60
[2018-08-19] MEDS: Enoxaparin 40 mg Syringe SC SCH (09:45)
[2018-08-19] MEDS ORDERED: Lidocaine 4% (Laryng-O-Jet) Kit MM ONE (09:50)
[2018-08-19] MEDS ORDERED: Propofol 10 mg/ml Inj (20 ML) ONE ×2 (10:26→10:27)
[2018-08-19] MEDS ORDERED: ePHEDrine 50 mg/ml Inj ONE (10:56)
[2018-08-19 16:24] VITALS: PULSE 84
[2018-08-19 16:25] VITALS: BP 102/70; TEMP 98.1; O2SAT 95
--- NOTE | 2018-08-19 17:13 | CP.PCM.DIS ---
<PriscilaMariama Y - Last Filed: 08/19/18 18:10> Provider - Provider Date of Admission: 08/14/18 15:06 Attending physician: Alverto Thompson MD Time Spent in preparation of Discharge (in minutes): 45 Diagnosis - Discharge Diagnosis (1) CVA (cerebral vascular accident) Status: Acute (2) Laceration Status: Acute Hospital Course - Lab Results Lab Results: Most Recent Lab Values WBC 5.7 K/uL (4.8-10.8) 08/19/18 06:30 RBC 5.58 Mil/uL (4.40-5.90) 08/19/18 06:30 Hgb 14.4 g/dL (12.0-18.0) 08/19/18 06:30 Hct 43.9 % (35.0-51.0) 08/19/18 06:30 MCV 78.7 fL (80.0-94.0) L 08/19/18 06:30 MCH 25.8 pg (27.0-31.0) L 08/19/18 06:30 MCHC 32.7 g/dL (33.0-37.0) L 08/19/18 06:30 RDW 15.8 % (11.5-14.5) H 08/19/18 06:30 Plt Count 244 K/uL (130-400) 08/19/18 06:30 MPV 8.4 fL (7.2-11.7) 08/19/18 06:30 Neut % (Auto) 53.6 % (50.0-75.0) 08/19/18 06:30 Lymph % (Auto) 31.2 % (20.0-40.0) 08/19/18 06:30 [place] % (Auto) 11.7 % (0.0-10.0) H 08/19/18 06:30 Eos % (Auto) 2.7 % (0.0-4.0) 08/19/18 06:30 Baso % (Auto) 0.8 % (0.0-2.0) 08/19/18 06:30 Neut # (Auto) 3.1 K/uL (1.8-7.0) 08/19/18 06:30 Lymph # (Auto) 1.8 K/uL (1.0-4.3) 08/19/18 06:30 [place] # (Auto) 0.7 K/uL (0.0-0.8) 08/19/18 06:30 Eos # (Auto) 0.2 K/uL (0.0-0.7) 08/19/18 06:30 Baso # (Auto) 0.0 K/uL (0.0-0.2) 08/19/18 06:30 PT 12.8 SECONDS (9.7-12.2) H 08/14/18 13:39 INR 1.2 08/14/18 13:39 APTT 37 SECONDS (21-34) H 08/14/18 13:39 Protein C Activity 102 % (70-180) 08/15/18 07:40 Protein S Activity 107 % (70-150) 08/15/18 07:40 Antithrombin III Activ 93 % activity (80-120) 08/15/18 07:40 Sodium 140 mmol/L (132-148) 08/19/18 06:30 Potassium 4.2 mmol/L (3.6-5.2) 08/19/18 06:30 Chloride 104 mmol/L (98-107) 08/19/18 06:30 Carbon Dioxide 23 mmol/L (22-30) 08/19/18 06:30 Anion Gap 18 (10-20) 08/19/18 06:30 BUN 11 mg/dL (9-20) 08/19/18 06:30 Creatinine 0.6 mg/dL (0.8-1.5) L 08/19/18 06:30 Est GFR ( Amer) > 60 08/19/18 06:30 Est GFR (Non-Af Amer) > 60 08/19/18 06:30 POC Glucose (mg/dL) 95 mg/dL (65-110) 08/19/18 06:44 Random Glucose 90 mg/dL (75-110) 08/19/18 06:30 Hemoglobin A1c 5.8 % (4.2-6.5) 08/14/18 13:39 Calcium 9.1 mg/dl (8.6-10.4) 08/19/18 06:30 Total Bilirubin 0.5 mg/dL (0.2-1.3) 08/19/18 06:30 AST 48 U/L (17-59) 08/19/18 06:30 ALT 60 U/L (21-72) 08/19/18 06:30 Alkaline Phosphatase 74 U/L (38-126) 08/19/18 06:30 Total Creatine Kinase 59 U/L (55-170) 08/15/18 02:00 CK-MB (Mass) < 0.44 ng/mL (0.0-3.38) 08/15/18 02:00 Troponin I < 0.0120 ng/mL (0.00-0.120) 08/15/18 02:00 Total Protein 7.1 g/dL (6.3-8.3) 08/19/18 06:30 Albumin 4.1 g/dL (3.5-5.0) 08/19/18 06:30 Globulin 3.0 gm/dL (2.2-3.9) 08/19/18 06:30 Albumin/Globulin Ratio 1.4 (1.0-2.1) 08/19/18 06:30 Triglycerides 61 mg/dL (0-149) 08/14/18 13:39 Cholesterol 165 mg/dL (0-199) 08/14/18 13:39 LDL Cholesterol Direct 103 mg/dL (0-129) 08/14/18 13:39 HDL Cholesterol 48 mg/dL (30-70) 08/14/18 13:39 Homocysteine 7.7 umol/L (6.6-14.8) 08/15/18 07:40 Urine Color Yellow (YELLOW) 08/18/18 23:00 Urine Clarity Clear (Clear) 08/18/18 23:00 Urine pH 6.0 (5.0-8.0) 08/18/18 23:00 Ur Specific Milroy 1.009 (1.003-1.030) 08/18/18 23:00 Urine Protein Negative mg/dL (NEGATIVE) 08/18/18 23:00 Urine Glucose (UA) Normal mg/dL (Normal) 08/18/18 23:00 Urine Ketones Negative mg/dL (NEGATIVE) 08/18/18 23:00 Urine Blood Negative (NEGATIVE) 08/18/18 23:00 Urine Nitrate Negative (NEGATIVE) 08/18/18 23:00 Urine Bilirubin Negative (NEGATIVE) 08/18/18 23:00 Urine Urobilinogen Normal mg/dL (0.2-1.0) 08/18/18 23:00 Ur Leukocyte Esterase Neg Rogelio/uL (Negative) 08/18/18 23:00 Urine WBC (Auto) < 1 /hpf (0-5) 08/18/18 23:00 Urine Bacteria Rare (<OCC) 08/18/18 23:00 Urine Opiates Screen Negative (NEGATIVE) 08/15/18 02:00 Urine Methadone Screen Negative (NEGATIVE) 08/15/18 02:00 Ur Barbiturates Screen Negative (NEGATIVE) 08/15/18 02:00 Ur Phencyclidine Scrn Negative (NEGATIVE) 08/15/18 02:00 Ur Amphetamines Screen Negative (NEGATIVE) 08/15/18 02:00 U Benzodiazepines Scrn Negative (NEGATIVE) 08/15/18 02:00 U Oth Cocaine Metabols Negative (NEGATIVE) 08/15/18 02:00 U Cannabinoids Screen Negative (NEGATIVE) 08/15/18 02:00 Prothrombin Mut Interp see note 08/15/18 09:59 Prothrombin Gene Mutate see note 08/15/18 09:59 Prothromb Gene Review see note 08/15/18 09:59 Blood Type O POSITIVE 08/14/18 13:41 Antibody Screen Negative 08/14/18 13:41 - Hospital Course Hospital Course: Patient is a 48 year old Azerbaijani male with no past medical history. Patient's (Myrna) and daughter are at bedside with consent of patient to help with translation and with patient history. Patient comes to ED with a complaint of left-sided facial droop. Patient states this started yesterday at about 5: 30PM while at home. Patient states he was walking into the kitchen when he suddenly felt his left leg starting to "wabble," subsequently to which he fell onto his left side. This fall was not witnessed, and patient proceeded to sit on the couch. Patient's came into the house and noticed the patient's face was "lop-sided" and she stated the patient had slurred speech. Patient's told the patient that he needs to go to the ED, but patient refused. Patient was eating dinner and was unable to keep liquid from spilling from the left side of mouth. Patient took 81mg Aspirin and went to bed. Patient woke up following morning with continued left-sided facial droop, which prompted him to come to ED. Patient admits to headache throbbing in quality and localizes to the front of his head after the fall, but denies any bruising and/or cuts. Patient also denies headache currently. Patient also denies chest pain, dizziness, palpitations, shortness of breath, numbness and/or tingling, weakness , blurry vision, tinnitus, ear pain, and/or discharge from ears. CXR showed no acute pathology. Head CT showed acute right MCA infarct, confirmed by brain MRI to not be hemorrhagic. Head and Neck CTA showed no pathology that would've led to stroke. TTE with bubble showed LVEF 64% with no bubble or significant valvular abnormality, however ISABELLA showed patent foramen ovale. Hypercoag workup was sent out and results will be received in 5-7 days. Patient does not need to be inpatient while that results. Primary Diagnosis: Stroke Patient is clear for discharge per Dr. Thompson and Dr. Reyez. Your ISABELLA showed a Patent Foramen Ovale. He is starting three new medications. Please take them as prescribed: Eliquis 5 mg by mouth twice a day (8am and 8pm) Atorvastatin 40mg by mouth at bedtime (10pm) Plavix 75mg by mouth every day Please come to Medical Records early next week to pickling operator the results of your hypercoaguability workup. It is located on the ground floor of [facility] and is open from 9-3:30 M-F. You MUST follow up with your PMD, Dr. Mejia, before you run out of medication. You will be on TWO blood thinners, which means you are at increased risk of bleed. Please do not do anything that would make you bleed: contact sports, run into furniture, getting punched, lifting heavy objects greater than 25 pounds, excessive alcohol drinking. Do not take Aspirin or NSAIDs (Motrin, Aleve, ibuprofen); if you are having muscle aches take Tylenol instead, and come see the doctor as may indicate bleeding. Stay aware and stay safe to live your best life. This is a summary of the hospital course. Please refer to the EMR for more detail. - Date & Time of H&P Date of H&P: 08/19/18 Time of H&P: 16:00 Discharge Exam - Head Exam Head Exam: ATRAUMATIC, NORMAL INSPECTION Discharge Plan - Discharge Medications Prescriptions: Apixaban [Eliquis] 5 mg PO BID #70 tablet Atorvastatin [Lipitor] 40 mg PO HS #30 tab Clopidogrel [Plavix] 75 mg PO DAILY #30 tab - Follow Up Plan Condition: GUARDED Disposition: HOME/ ROUTINE Instructions: Heart Healthy Diet, Quitting Smoking for Older Adults, Smoking: Not Just Harmful to Your Lungs and Heart, Stroke (DC), Apixaban, Atorvastatin, Clopidogrel Additional Instructions: Patient is clear for discharge per Dr. Thompson and Dr. Reyez. Your ISABELLA showed a Patent Foramen Ovale. He is starting three new medications. Please take them as prescribed: Eliquis 5 mg by mouth twice a day (8am and 8pm) Atorvastatin 40mg by mouth at bedtime (10pm) Plavix 75mg by mouth every day Please come to Medical Records early next week to pickling operator the results of your hypercoaguability workup. It is located on the ground floor of [facility] and is open from 9-3:30 M-F. You MUST follow up with your PMD, Dr. Mejia, before you run out of medication. You will be on TWO blood thinners, which means you are at increased risk of bleed. Please do not do anything that would make you bleed: contact sports, run into furniture, getting punched, lifting heavy objects greater than 25 pounds, excessive alcohol drinking. Do not take Aspirin or NSAIDs (Motrin, Aleve, ibuprofen); if you are having muscle aches take Tylenol instead, and come see the doctor as may indicate bleeding. Stay aware and stay safe to live your best life. El paciente est listo para ser dado de debbie por el Dr. Thompson y el Dr. Reyez. Schwartz ISABELLA mostr lavelle patente Foramen Ovale. l est comenzando rasheed nuevos medicamentos. Tmalos juan jose se indica: Eliquis 5 mg por va oral dos veces al da (8am y 8pm) Atorvastatin 40mg por va oral antes de acostarse (10pm) Plavix 75mg por va oral todos los delgado Acuda a Medical Records a principios de la prxima semana para recoger los resultados de schwartz evaluacin de hipercoagibilidad. Est ubicado en la [facility] [facility] y est abierto desde las 9-3: 30 M-F. DEBE seguir con schwartz PMD, Dr. Mejia, antes de que se quede sin medicamentos. Estar en DOS anticoagulantes, lo que significa que corre un mayor riesgo de sangrado. Por favor, no alice nada que lo alice sangrar: deportes de contacto, tropezarse con los muebles, golpearse, levantar objetos pesados de ms de 25 libras, beber alcohol en exceso. No tome aspirina o JODY (Motrin, Aleve, ibuprofeno); si tiene travis musculares, tome Tylenol y acuda al mdico, ya que puede indicar hemorragia. Mantngase al tanto y mantngase seguro para vivir schwartz mejor rafat. Referrals: [facility] [Outside] Donald Mejia MD [Medical Doctor] - Grupo Reyez MD [Staff Provider] - <Alverto Thompson - Last Filed: 08/20/18 09:45> Provider - Provider Date of Admission: 08/14/18 15:06 Attending physician: Alverto Thompson MD Time Spent in preparation of Discharge (in minutes): 40 Hospital Course - Lab Results Lab Results: Most Recent Lab Values WBC 5.7 K/uL (4.8-10.8) 08/19/18 06:30 RBC 5.58 Mil/uL (4.40-5.90) 08/19/18 06:30 Hgb 14.4 g/dL (12.0-18.0) 08/19/18 06:30 Hct 43.9 % (35.0-51.0) 08/19/18 06:30 MCV 78.7 fL (80.0-94.0) L 08/19/18 06:30 MCH 25.8 pg (27.0-31.0) L 08/19/18 06:30 MCHC 32.7 g/dL (33.0-37.0) L 08/19/18 06:30 RDW 15.8 % (11.5-14.5) H 08/19/18 06:30 Plt Count 244 K/uL (130-400) 08/19/18 06:30 MPV 8.4 fL (7.2-11.7) 08/19/18 06:30 Neut % (Auto) 53.6 % (50.0-75.0) 08/19/18 06:30 Lymph % (Auto) 31.2 % (20.0-40.0) 08/19/18 06:30 [place] % (Auto) 11.7 % (0.0-10.0) H 08/19/18 06:30 Eos % (Auto) 2.7 % (0.0-4.0) 08/19/18 06:30 Baso % (Auto) 0.8 % (0.0-2.0) 08/19/18 06:30 Neut # (Auto) 3.1 K/uL (1.8-7.0) 08/19/18 06:30 Lymph # (Auto) 1.8 K/uL (1.0-4.3) 08/19/18 06:30 [place] # (Auto) 0.7 K/uL (0.0-0.8) 08/19/18 06:30 Eos # (Auto) 0.2 K/uL (0.0-0.7) 08/19/18 06:30 Baso # (Auto) 0.0 K/uL (0.0-0.2) 08/19/18 06:30 PT 12.8 SECONDS (9.7-12.2) H 08/14/18 13:39 INR 1.2 08/14/18 13:39 APTT 37 SECONDS (21-34) H 08/14/18 13:39 Protein C Activity 102 % (70-180) 08/15/18 07:40 Protein S Activity 107 % (70-150) 08/15/18 07:40 Antithrombin III Activ 93 % activity (80-120) 08/15/18 07:40 Factor V see note 08/15/18 07:40 Sodium 140 mmol/L (132-148) 08/19/18 06:30 Potassium 4.2 mmol/L (3.6-5.2) 08/19/18 06:30 Chloride 104 mmol/L (98-107) 08/19/18 06:30 Carbon Dioxide 23 mmol/L (22-30) 08/19/18 06:30 Anion Gap 18 (10-20) 08/19/18 06:30 BUN 11 mg/dL (9-20) 08/19/18 06:30 Creatinine 0.6 mg/dL (0.8-1.5) L 08/19/18 06:30 Est GFR ( Amer) > 60 08/19/18 06:30 Est GFR (Non-Af Amer) > 60 08/19/18 06:30 POC Glucose (mg/dL) 97 mg/dL (65-110) 08/19/18 16:41 Random Glucose 90 mg/dL (75-110) 08/19/18 06:30 Hemoglobin A1c 5.8 % (4.2-6.5) 08/14/18 13:39 Calcium 9.1 mg/dl (8.6-10.4) 08/19/18 06:30 Total Bilirubin 0.5 mg/dL (0.2-1.3) 08/19/18 06:30 AST 48 U/L (17-59) 08/19/18 06:30 ALT 60 U/L (21-72) 08/19/18 06:30 Alkaline Phosphatase 74 U/L (38-126) 08/19/18 06:30 Total Creatine Kinase 59 U/L (55-170) 08/15/18 02:00 CK-MB (Mass) < 0.44 ng/mL (0.0-3.38) 08/15/18 02:00 Troponin I < 0.0120 ng/mL (0.00-0.120) 08/15/18 02:00 Total Protein 7.1 g/dL (6.3-8.3) 08/19/18 06:30 Albumin 4.1 g/dL (3.5-5.0) 08/19/18 06:30 Globulin 3.0 gm/dL (2.2-3.9) 08/19/18 06:30 Albumin/Globulin Ratio 1.4 (1.0-2.1) 08/19/18 06:30 Triglycerides 61 mg/dL (0-149) 08/14/18 13:39 Cholesterol 165 mg/dL (0-199) 08/14/18 13:39 LDL Cholesterol Direct 103 mg/dL (0-129) 08/14/18 13:39 HDL Cholesterol 48 mg/dL (30-70) 08/14/18 13:39 Homocysteine 7.7 umol/L (6.6-14.8) 08/15/18 07:40 Urine Color Yellow (YELLOW) 08/18/18 23:00 Urine Clarity Clear (Clear) 08/18/18 23:00 Urine pH 6.0 (5.0-8.0) 08/18/18 23:00 Ur Specific Milroy 1.009 (1.003-1.030) 08/18/18 23:00 Urine Protein Negative mg/dL (NEGATIVE) 08/18/18 23:00 Urine Glucose (UA) Normal mg/dL (Normal) 08/18/18 23:00 Urine Ketones Negative mg/dL (NEGATIVE) 08/18/18 23:00 Urine Blood Negative (NEGATIVE) 08/18/18 23:00 Urine Nitrate Negative (NEGATIVE) 08/18/18 23:00 Urine Bilirubin Negative (NEGATIVE) 08/18/18 23:00 Urine Urobilinogen Normal mg/dL (0.2-1.0) 08/18/18 23:00 Ur Leukocyte Esterase Neg Rogelio/uL (Negative) 08/18/18 23:00 Urine WBC (Auto) < 1 /hpf (0-5) 08/18/18 23:00 Urine Bacteria Rare (<OCC) 08/18/18 23:00 Urine Opiates Screen Negative (NEGATIVE) 08/15/18 02:00 Urine Methadone Screen Negative (NEGATIVE) 08/15/18 02:00 Ur Barbiturates Screen Negative (NEGATIVE) 08/15/18 02:00 Ur Phencyclidine Scrn Negative (NEGATIVE) 08/15/18 02:00 Ur Amphetamines Screen Negative (NEGATIVE) 08/15/18 02:00 U Benzodiazepines Scrn Negative (NEGATIVE) 08/15/18 02:00 U Oth Cocaine Metabols Negative (NEGATIVE) 08/15/18 02:00 U Cannabinoids Screen Negative (NEGATIVE) 08/15/18 02:00 Prothrombin Mut Interp see note 08/15/18 09:59 Prothrombin Gene Mutate see note 08/15/18 09:59 Prothromb Gene Review see note 08/15/18 09:59 Blood Type O POSITIVE 09/13/18 13:41 Antibody Screen Negative 08/14/18 13:41 Attending/Attestation - Attestation I have personally seen and examined this patient.: Yes I have fully participated in the care of the patient.: Yes I have reviewed all pertinent clinical information, including history, physical exam and plan: Yes Notes (Text): 08/20/18 09:42 This is a late entry. Spoke with Thuy at D Dr. Donald Mejia office and have asked her to reach out to patient to make sure follow up with Dr. Mejia is scheduled. Also faxed [phone] discharge summary to his office and Thuy is aware to look out for it. Alverto Thompson D.O.
== END 2018-08-19 18:24 | disposition home or self-care (01) | DRG 14 ==
LOC: C.ER 13:21 → C.9E 15:06 → C.6T 16:36
PROVIDERS: ADMIT Family Medicine; ATTEND Family Medicine
PROC: B24BZZ4 Ultrasonography of Heart with Aorta, Transesophageal (ICD-10-PCS; principal; 2018-08-19)
DX: I63.9 Cerebral infarction, unspecified (principal); D68.62 Lupus anticoagulant syndrome; I10 Essential (primary) hypertension; R73.02 Impaired glucose tolerance (oral); R29.810 Facial weakness; E66.9 Obesity, unspecified; R47.81 Slurred speech; G81.94 Hemiplegia, unspecified affecting left nondominant side; Z87.891 Personal history of nicotine dependence; Q21.1 Atrial septal defect; Z68.31 Body mass index [BMI] 31.0-31.9, adult

== ENCOUNTER 2019-04-30 09:43 | Emergency (ER) | payer OTHER, SELFPAY ==
[2019-04-30 09:43] VITALS: BMI 31.4
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
[2019-04-30 11:46] VITALS: BP 118/77; PULSE 66; RESP 20; TEMP 97.3; O2SAT 99
[2019-04-30] MEDS ORDERED: Lidocaine 5% Patch TD ONE (11:46)
[2019-05-01] MEDS ORDERED: Lidocaine 5% Patch TD SCH (10:00)
== END 2019-04-30 12:08 | disposition home or self-care (01) ==
LOC: C.ER 09:43
DX: M54.12 Radiculopathy, cervical region (principal); S33.5XXA Sprain of ligaments of lumbar spine, initial encounter; V49.49XA Driver injured in collision with other motor vehicles in traffic accident, initial encounter; Y92.410 Unspecified street and highway as the place of occurrence of the external cause